=== PATIENT | male | born 1955 | race Caucasian/White ===

== ENCOUNTER 2023-04-28 08:33 | Outpatient (OUT) | payer MEDICARE, OTHER, SELFPAY ==
--- NOTE | 2023-04-28 08:49 | MR_ITS ---
The [address] [address] Patient Name: MAURA BALLARD MRN: [id number] date: 1955 Sex: M Assigned Patient Location: MRI Current Patient Location: MRI Accession/Order Number: [id number] Exam Date: 04/28/2023 09:00 Report Date: 04/28/2023 12:49 At the request of: NAYELY HERNANDES Procedure: MR foot RT wo con EXAM: MR foot RT wo con REASON FOR EXAM: Plantar Fasciitis M72.2. TECHNIQUE: Multiplanar, multisequence imaging of the right foot was performed without contrast COMPARISON: No recent relevant imaging. FINDINGS: There is fusiform thickening and intermediate signal involving the Achilles tendon with linear fluid: Signal along the deep fibers laterally suspicious for low-grade partial tearing. Enthesophytes are noted. No evidence of complete tear. Thickening and intermediate signal involving the medial cord of the plantar fascia. There is complete tear of the medial cord with surrounding edema. The lateral cord appears intact. Inferior calcaneal spur is noted. Laterally, thickening and intermediate signal of the peroneal tendons is consistent with tendinosis. There is short segment high-grade partial tear of the inframalleolar peroneus brevis tendon (series 4, images 9-12). A complete rupture not confidently identified. Mild tenosynovitis. The superficial peroneal retinaculum is intact. Thickening and intermediate signal involving the anterior talofibular and calcaneofibular ligaments suggesting prior ligamentous injury. No definite acute lateral ligamentous injury. Medially, the medial flexor tendons demonstrate normal thickness and signal without tendinosis or tear. The deep deltoid ligament is dysmorphic suggesting deep deltoid ligament sprain, remote. The spring ligament is intact. Lisfranc ligament is intact. Anteriorly, the anterior extensor tendons demonstrate normal thickness and signal without tendinosis or tear. The bone marrow signal is without acute fracture. Moderate to severe tibiotalar and subtalar osteoarthritis. The sinus tarsi is nonedematous. Moderate midfoot osteoarthritis. The plantar musculature demonstrates normal bulk and signal. MR/MR foot RT wo con IMPRESSION: 1. Chronic plantar fasciopathy with complete tear of the medial cord of the plantar fascia from its calcaneal attachment. 2. High-grade partial tearing of the inframalleolar peroneus brevis tendon. A complete rupture not identified. 3. Achilles tendinosis with low-grade partial tearing. 4. Sequela of medial lateral ligamentous injury. No definite acute ligamentous injury. 5. 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
== END 2023-04-28 08:34 | disposition home or self-care (01) ==
LOC: MRI 08:38
PROVIDERS: PCP Internal Medicine
DX: S96.819A Strain of other specified muscles and tendons at ankle and foot level, unspecified foot, initial encounter (principal)
CPT/HCPCS: 73718

== ENCOUNTER 2023-05-14 12:00 | Outpatient (OUT) | payer MEDICARE, OTHER, SELFPAY ==
--- NOTE | 2023-05-14 | XR_ITS ---
The [address] [address] Patient Name: MAUAR GUADALUPE MRN: [id number] date: 1955 Sex: M Assigned Patient Location: LAB Current Patient Location: LAB Accession/Order Number: [id number] Exam Date: 05/14/2023 12:20 Report Date: 05/14/2023 21:38 At the request of: NAYELY HERNANDES Procedure: XR chest 2V EXAM: XR chest 2V HISTORY: pre surgical clearance COMPARISON: None. TECHNIQUE: PA and lateral views of the chest FINDINGS: There is no focal airspace consolidation. The lungs are mildly hyperinflated. There are bibasilar reticular opacities, suggestive of scarring or mild atelectasis. The cardiomediastinal silhouette is not enlarged. No evidence of pleural effusion or pneumothorax are identified. No acute osseous abnormality. XR/XR chest 2V IMPRESSION: No acute cardiopulmonary process. Lungs appear hyperinflated suggestive of obstructive lung disease with mild bibasilar chronic changes Electronically authenticated by: LYNNE JIMENEZ Date: 05/14/2023 21:38
[2023-05-14 12:23] LABS: Basophils Absolute Auto 0.1 10^3/uL (0.0-0.1); Basophils Percent Auto 0.9 % (0.2-2.0); Eosinophils Absolute Auto 0.2 10^3/uL (0.0-0.7); Hematocrit 41.2 % (42.0-54.0); Hemoglobin 13.5 g/dL (14.0-18.0); Immature Granulocytes Abs Auto 0.04 10^3/uL (0.00-0.03); Immature Granulocytes Pct Auto 0.5 % (0.0-0.5); Lymphocytes Absolute Auto 2.1 10^3/uL (1.2-3.8); Lymphocytes Percent Auto 24.1 % (20.5-60.0); Mean Corpuscular HGB Conc 32.8 g/dL (29.9-35.2); Mean Corpuscular Hemoglobin 29.5 pg (25.9-34.0); Mean Corpuscular Volume 90.2 fL (80.0-94.0); Mean Platelet Volume 11.2 fL (9.5-13.5); Monocytes Absolute Auto 0.8 10^3/uL (0.3-0.8); Monocytes Percent Auto 8.6 % (1.7-12.0); Neutrophils Absolute Auto 5.6 10^3/uL (1.4-6.5); Neutrophils Percent Auto 63.9 % (43.0-75.0); Platelet Count 174 10^3/uL (150-450); Red Blood Count 4.57 10^6/uL (4.70-6.10); Red Cell Distribution Width 13.2 % (11.0-15.0); White Blood Count 8.7 10^3/uL (4.0-11.0)
[2023-05-14 13:13] LABS: Anion Gap 10.8; BUN Creatinine Ratio 17.8; Calcium 8.5 mg/dL (8.5-10.1); Carbon Dioxide 31.8 mmol/L (21.0-32.0); Chloride 104 mmol/L (98-107); Estimated GFR (African America >60 (>=60); Estimated GFR (Non-African Ame >60 (>=60); Glucose 118 mg/dL (74-106); Potassium 3.6 mmol/L (3.5-5.1); Sodium 143 mmol/L (136-145)
== END 2023-05-14 12:01 | disposition home or self-care (01) ==
LOC: LAB 12:08
PROVIDERS: PCP Internal Medicine
DX: Z01.812 Encounter for preprocedural laboratory examination (principal); Z01.810 Encounter for preprocedural cardiovascular examination
CPT/HCPCS: 36415; 71046; 80048; 85025

== ENCOUNTER 2023-07-11 08:02 | Outpatient (OUT) | payer MEDICARE, OTHER, SELFPAY ==
--- NOTE | 2023-07-11 08:08 | CT_ITS ---
[address] [address] Patient Name: MAURA GUADALUPE MRN: [id number] date: 1955 Sex: M Assigned Patient Location: CT Current Patient Location: Accession/Order Number: [id number] Exam Date: 07/11/2023 08:16 Report Date: 07/12/2023 06:28 At the request of: SILVESTRE MIRANDA Procedure: CT lung screening low-dose EXAMINATION: CT lung screening low-dose HISTORY: Cigarette Nicotine Dependence F17.210 COMPARISON: No relevant comparison available. TECHNIQUE: Axial, Coronal, and Sagittal images were created without the administration of IV contrast material. Dose reduction techniques were achieved by using automated exposure control and/or adjustment of mA and/or kV according to patient size and/or use of iterative reconstruction technique. FINDINGS: LUNGS: A few tiny granulomas. No significant chronic interstitial changes, suspicious nodules or infiltrates. PLEURA: No mass, effusion, or pneumothorax. VASCULATURE: No abnormality. DIMAS: No mass or pathologic adenopathy. MEDIASTINUM: No mass or pathologic adenopathy. CARDIAC: Marked atherosclerotic coronary artery disease. No cardiac enlargement or pericardial effusion. AORTA: No aneurysm or dissection. CHEST WALL: No mass or axillary adenopathy BONES: No bone lesion or fracture. LIMITED ABDOMEN: No suspicious findings. Limited images of the upper abdomen. OTHER: Negative. CT/CT lung screening low-dose IMPRESSION: 1. Lung-RADS Category 1 Negative. No nodules and definitely benign nodules. Continue annual screening with LDCT in 12 months. 2. Marked atherosclerotic coronary artery disease. Electronically authenticated by: BONITA MEYERS Date: 07/12/2023 06:28
--- NOTE | 2023-07-11 08:08 | US_ITS ---
The [address] [address] Patient Name: MAURA GUADALUPE MRN: [id number] date: 1955 Sex: M Assigned Patient Location: CT Current Patient Location: CT Accession/Order Number: [id number] Exam Date: 07/11/2023 08:20 Report Date: 07/11/2023 09:21 At the request of: SILVESTRE MIRANDA Procedure: US abdominal aortic aneurysm EXAM: US abdominal aortic aneurysm HISTORY: . Abdominal Aortic Aneurysm Z13.6 . COMPARISON: None. TECHNIQUE: Grayscale and color imaging was performed FINDINGS: Scanning of the abdominal aorta demonstrates the proximal aorta to measure 2.7 x 2.9 cm, mid aorta 1.8 x 2.2 cm, and the distal aorta 1.8 x 1.9 cm. Color-flow is noted throughout the aorta. Atherosclerotic changes of the abdominal aorta are noted. US/US abdominal aortic aneurysm Impression: 1. The proximal aorta is prominent measuring 8.7 x 2.9 cm. 2. The mid and distal aorta demonstrate no aneurysmal dilatation. 3. Atherosclerotic changes of the abdominal aorta. Electronically authenticated by: VIRGIL HERNANDES Date: 07/11/2023 09:21
== END 2023-07-11 08:03 | disposition home or self-care (01) ==
LOC: CT 08:02
PROVIDERS: PCP Internal Medicine; Visit Provider Internal Medicine
DX: F17.210 Nicotine dependence, cigarettes, uncomplicated (principal); Z13.6 Encounter for screening for cardiovascular disorders
CPT/HCPCS: 71271; 76775

== ENCOUNTER 2023-12-08 06:57 | Emergency (ER) | payer MEDICARE, OTHER, SELFPAY ==
[2023-12-08] VITALS (9 sets, daily range): BP systolic 118–141; BP diastolic 66–76; PULSE 52–62; TEMP 36.6; O2SAT 93–98; BMI 31.9
--- NOTE | 2023-12-08 07:09 | CT_ITS ---
[address] [address] Patient Name: MAURA GUADALUPE MRN: [id number] date: 1955 Sex: M Assigned Patient Location: ER Current Patient Location: ER Accession/Order Number: [id number] Exam Date: 12/08/2023 08:42 Report Date: 12/08/2023 09:19 At the request of: RAFAELA MARKER Procedure: CT abdomen pelvis w con EXAMINATION: CT abdomen pelvis w con HISTORY: abd pain COMPARISON: No relevant comparison available. TECHNIQUE: Axial, Coronal, and Sagittal images were obtained without and/or with IV contrast as indicated by examination type. Dose reduction techniques were achieved by using automated exposure control and/or adjustment of mA and/or kV according to patient size and/or use of iterative reconstruction technique. FINDINGS: LUNG BASES: No visible pulmonary or pleural disease. LIVER: No enlargement, atrophy, suspicious density, or significant focal lesion. BILIARY: No dilatation or calcification. PANCREAS: No lesion, fluid collection, or abnormal duct dilatation. SPLEEN: No enlargement or focal lesion. ADRENALS: No mass or enlargement. KIDNEYS: No mass, obstruction, or calcification. BOWEL/MESENTERY: Multiple small diverticula involving the sigmoid colon. Prominent circumferential wall thickening of the descending and sigmoid colon. No appreciable mass. No bowel obstruction. Unremarkable stomach and small bowel. Normal appendix. AORTA/VASCULAR: No aneurysm or dissection. RETROPERITONEUM: No mass or adenopathy. LYMPH NODES: No adenopathy. URINARY BLADDER: No visible focal wall thickening, lesion, or calculus. PELVIC ORGANS: No visible mass. Pelvic organs appropriate for patient age. ABDOMINAL WALL: No mass or hernia. BONES: No bony lesion or fracture. OTHER: Negative. CT/CT abdomen pelvis w con IMPRESSION: 1. Abnormal circumferential wall thickening of proximal descending through distal sigmoid colon most suggestive of colitis. No bowel obstruction. 2. Moderate diverticulosis of sigmoid colon; no convincing diverticulitis. Electronically authenticated by: BONITA MEYERS Date: 12/08/2023 09:19
--- NOTE | 2023-12-08 07:10 | ED_ITS ---
HPI - Abdominal Pain General Chief Complaint: Abdominal Pain Stated Complaint: abdominal pain Time Seen by Provider: 12/08/23 07:08 Source: patient Mode of arrival: ambulance History of Present Illness HPI narrative: This 68-year-old male who states he has a history of C. difficile a year ago presents for evaluation of suprapubic abdominal pain. The patient states he woke up around 4 AM and went to the bathroom. He then started having suprapubic abdominal pain with nausea. He states he went to the bathroom several times and his pain has subsided but is still present is coming and going. He denies any hematuria or dysuria. He states his stool is becomes soft but denies any black tarry stool. He denies any chest pain or shortness of breath. He denies any dizziness or syncope. He has never had any abdominal surgery. He does admit to daily drinking. According to the records he is also on Suboxone. The patient states upon arrival that he just wants to sleep.... Related Data Home Medications ?Medication ?Instructions ?Recorded ?Confirmed atorvastatin 40 mg tablet mg 12/08/23 buprenorphine 8 mg-naloxone 2 mg film 12/08/23 sublingual film hydrochlorothiazide 12.5 mg tablet mg 12/08/23 ibuprofen 800 mg tablet mg 12/08/23 lisinopril 10 mg tablet mg 12/08/23 metoprolol succinate 50 mg mg PO 12/08/23 tablet,extended release 24 hr omeprazole 20 mg capsule,delayed mg 12/08/23 release Allergies Allergy/AdvReac Type Severity Reaction Status Date / Time No Known Drug Allergies Allergy Verified 12/08/23 07:04 Review of Systems ROS Status of ROS 10 or more systems reviewed and unremark able except as noted in history and below Exam Narrative Exam Narrative: Nurses note and vital signs reviewed and patient is not hypoxic. General: The patient appears well and in no apparent distress. Patient is resting comfortably on cart. Skin: Warm, dry, no pallor noted. There is no rash noted. Head: Normocephalic, atraumatic Eye: Normal conjunctiva, no drainage, EOMI. PERRL. No scleral icterus Ears, Nose, Mouth, and Throat: oral mucosa is moist. Patient is edentulous Cardiovascular: Regular Rate and [id number], no murmurs, rubs or gallops Respiratory: Patient is in no distress, no accessory muscle use, lungs are clear to auscultation, no wheezing, rales or rhonchi Back: non-tender, no CVA tenderness bilaterally to percussion. GI: Normal bowel sounds, Abdomen is softly distended and diffusely tender, he localizes to the right upper quadrant and epigastrium Musculoskeletal: The patient has no evidence of calf tenderness, no pitting edema, symmetrical pulses noted bilaterally Neurological: A&O x4, normal speech, Appears sleepy, has no focal deficits Psychiatric: Cooperative Constitutional Vital Signs, click to edit/add: Last Vital Signs Temp 98 F 12/08/23 07:00 Pulse 55 L 12/08/23 07:00 Resp 18 12/08/23 07:00 BP 128/72 12/08/23 07:00 Pulse Ox 96 12/08/23 07:00 O2 Del Method Room Air 12/08/23 07:00 Course Vital Signs Vital signs: Vital Signs Temperature 98 F 12/08/23 07:00 Pulse Rate 55 L 12/08/23 07:00 Respiratory Rate 18 12/08/23 07:00 Blood Pressure 128/72 12/08/23 07:00 Pulse Oximetry 96 12/08/23 07:00 Oxygen Delivery Method Room Air 12/08/23 07:00 Temperature 98 F 12/08/23 07:00 Pulse Rate 55 L 12/08/23 07:00 Respiratory Rate 18 12/08/23 07:00 Blood Pressure 128/72 12/08/23 07:00 Pulse Oximetry 96 12/08/23 07:00 Oxygen Delivery Method Room Air 12/08/23 07:00 Discharge Plan Discharge Chief Complaint: Abdominal Pain Patient Disposition: Still a Patient Prescriptions / Home Meds: No Action atorvastatin 40 mg tablet ibuprofen 800 mg tablet metoprolol succinate 50 mg tablet extended release 24 hr PO lisinopril 10 mg tablet omeprazole 20 mg capsule,delayed release(DR/EC) hydrochlorothiazide 12.5 mg tablet buprenorphine-naloxone 8-2 mg film Print Language: Gabonese Referrals: SILVESTRE MIRANDA [Primary Care Provider] - 1 week
[2023-12-08] MEDS: ONDANSETRON PF 4 MG/2 ML VIAL IV (07:14)
[2023-12-08] MEDS: 0.9 % SODIUM CHLORIDE 1,000 ML 1000 ML IV (07:14)
[2023-12-08 07:15] LABS: Basophils Absolute Auto 0.1 10^3/uL (0.0-0.1); Basophils Percent Auto 0.4 % (0.2-2.0); Eosinophils Absolute Auto 0.2 10^3/uL (0.0-0.7); Eosinophils Percent Auto 1.3 % (0.9-7.0); Hemoglobin 13.6 g/dL (14.0-18.0); Immature Granulocytes Abs Auto 0.03 10^3/uL (0.00-0.03); Immature Granulocytes Pct Auto 0.2 % (0.0-0.5); Lymphocytes Absolute Auto 1.7 10^3/uL (1.2-3.8); Lymphocytes Percent Auto 12.2 % (20.5-60.0); Mean Corpuscular HGB Conc 32.4 g/dL (29.9-35.2); Mean Corpuscular Hemoglobin 29.4 pg (25.9-34.0); Mean Corpuscular Volume 90.9 fL (80.0-94.0); Mean Platelet Volume 11.7 fL (9.5-13.5); Monocytes Absolute Auto 0.6 10^3/uL (0.3-0.8); Monocytes Percent Auto 4.2 % (1.7-12.0); Neutrophils Absolute Auto 11.2 10^3/uL (1.4-6.5); Neutrophils Percent Auto 81.7 % (43.0-75.0); Platelet Count 183 10^3/uL (150-450); Red Blood Count 4.62 10^6/uL (4.70-6.10); Red Cell Distribution Width 13.3 % (11.0-15.0); White Blood Count 13.7 10^3/uL (4.0-11.0)
[2023-12-08 07:34] LABS: Alanine Aminotransferase 28 U/L (16-63); Albumin Globulin Ratio 0.9; Albumin Level 3.3 g/dL (3.4-5.0); Alkaline Phosphatase 87 U/L (46-116); Anion Gap 10.8; Aspartate Amino Transferase 18 U/L (15-37); BUN Creatinine Ratio 10.8; Bilirubin Total 0.8 mg/dL (0.2-1.0); Calcium 9.1 mg/dL (8.5-10.1); Carbon Dioxide 31.7 mmol/L (21.0-32.0); Chloride 102 mmol/L (98-107); Estimated GFR (African America >60 (>=60); Estimated GFR (Non-African Ame >60 (>=60); Globulin 3.5 g/dL; Glucose 158 mg/dL (74-106); Potassium 3.5 mmol/L (3.5-5.1); Sodium 141 mmol/L (136-145); Total Protein 6.8 g/dL (6.4-8.2)
[2023-12-08 07:35] LABS: Ethanol <3 mg/dL
[2023-12-08 08:50] LABS: Adenovirus F 40/41 NOT DETECTED (NOT DETECTE); Astrovirus NOT DETECTED (NOT DETECTE); Campylobacter NOT DETECTED (NOT DETECTE); Cryptosporidium NOT DETECTED (NOT DETECTE); Cyclospora cayetanensis NOT DETECTED (NOT DETECTE); Entamoeba histolytica NOT DETECTED (NOT DETECTE); Enteroaggregative E.coli NOT DETECTED (NOT DETECTE); Enteropathogenic E.coli NOT DETECTED (NOT DETECTE); Enterotoxigenic E. coli NOT DETECTED (NOT DETECTE); Giardia lamblia NOT DETECTED (NOT DETECTE); Norovirus GI/GII NOT DETECTED (NOT DETECTE); Plesiomonas shigelloides NOT DETECTED (NOT DETECTE); Rotavirus A NOT DETECTED (NOT DETECTE); Salmonella NOT DETECTED (NOT DETECTE); Sapovirus NOT DETECTED (NOT DETECTE); Shiga-like toxin-producing E.C NOT DETECTED (NOT DETECTE); Shigella/Enteroinvasive E.coli NOT DETECTED (NOT DETECTE); Vibrio NOT DETECTED (NOT DETECTE); Vibrio cholerae NOT DETECTED (NOT DETECTE); Yersinia enterocolitica NOT DETECTED (NOT DETECTE)
[2023-12-08 08:58] LABS: Bilirubin Urine SMALL (NEGATIVE); Blood Urine NEGATIVE (NEGATIVE); Clarity Urine CLEAR (CLEAR); Color Urine DK. YELLOW (YELLOW); Glucose Urine UA NEGATIVE (NEGATIVE); Ketones Urine TRACE mg/dL (NEGATIVE); Leukocyte Esterase Urine NEGATIVE (NEGATIVE); Nitrite Urine NEGATIVE (NEGATIVE); Protein Urine NEGATIVE (NEG/TRACE); Urobilinogen Urine >=8.0 EU/dL (0.2-1.0); pH Urine 7.5 (5.0-9.0)
[2023-12-08 09:21] LABS: Bacteria Urine NONE SEEN #/HPF (NONE SEEN); Cast Seen? SEEN #/LPF (NONE SEEN); Crystals Seen? None Seen #/HPF (None Seen); Hyaline Casts Urine FEW; Mucus Urine NONE SEEN (NONE SEEN); RBC Urine 0-2 #/HPF (0-2); Squamous Epithelial Cell Urine NONE SEEN #/LPF (NONE/RARE); WBC Urine 0-2 #/HPF (NONE SEEN)
[2023-12-08] MEDS: METRONIDAZOLE 250 MG TABLET 500 MG PO (09:44)
[2023-12-08] MEDS: CIPROFLOXACIN HCL 500 MG TABLET PO (09:45)
== END 2023-12-08 09:53 | disposition home or self-care (01) ==
PROVIDERS: Emergency Medicine; Emergency Provider Emergency Medicine; PCP Internal Medicine
DX: A09 Infectious gastroenteritis and colitis, unspecified (principal); Z79.899 Other long term (current) drug therapy
CPT/HCPCS: 36415; 74177; 80053; 80320; 81001; 83690; 85025; 87507; 96374; 99284; Q9967

== ENCOUNTER 2024-05-22 16:04 | Outpatient (OUT) | payer MEDICARE, OTHER, SELFPAY ==
[2024-05-23 04:08] LABS: C. Difficile PCR NEGATIVE (NEGATIVE)
== END 2024-05-22 16:05 | disposition home or self-care (01) ==
PROVIDERS: PCP Internal Medicine; Visit Provider Physician Assistant
DX: R19.7 Diarrhea, unspecified (principal); Z86.19 Personal history of other infectious and parasitic diseases
CPT/HCPCS: 87493

== ENCOUNTER 2024-05-24 13:11 | Outpatient (OUT) | payer MEDICARE, OTHER, SELFPAY | END 2024-05-24 13:12 | disposition home or self-care (01) | LOC: LAB 13:11 | PROVIDERS: PCP Internal Medicine; Visit Provider Internal Medicine | DX: R19.7 Diarrhea, unspecified (principal) | CPT/HCPCS: 87045; 87046; 87150; 87177; 87209; 87427 ==

== ENCOUNTER 2024-12-12 08:19 | Outpatient (OUT) | payer MEDICARE, OTHER, SELFPAY ==
--- NOTE | 2024-12-12 08:24 | CT_ITS ---
[address] [address] Patient Name: MAURA GUADALUPE MRN: [id number] date: 1955 Sex: M Assigned Patient Location: CT Current Patient Location: CT Accession/Order Number: [id number] Exam Date: 12/12/2024 09:40 Report Date: 12/12/2024 09:44 At the request of: SILVESTRE MIRANDA Procedure: CT lung screening low-dose CT CHEST WITHOUT CONTRAST, LOW DOSE SCREENING: CLINICAL DATA: A 69-year old current smoker, . COMPARISON: CT lung screen 07/12/2023 TECHNIQUE: Noncontrast axial CT scan images of the chest were obtained under the low dose screening CT protocol. Coronal and sagittal reconstructed images were also submitted. FINDINGS: Mediastinum : Suboptimal evaluation due to low-dose technique. Thoracic aorta appears normal in caliber. Pulmonary trunk appears nondilated. No pericardial effusion. No lymphadenopathy. The esophagus is grossly unremarkable. Lungs: No focal consolidation, pneumothorax or pleural effusion. Trachea and distal airways appear patent. Emphysema. Mild lung scarring. No suspicious noncalcified pulmonary nodule or mass. Upper abdomen: No acute findings. Bony thorax and chest wall: Soft tissues surrounding the chest wall demonstrate no acute findings. Osseous structures demonstrate degenerative change. CT/CT lung screening low-dose IMPRESSION: NO SUSPICIOUS PULMONARY NODULE. LUNG - RADS Version 1.0 Assessment: Category 1, Negative (No nodules and definitely benign nodules). Management: Continue annual lung screening with LDCT in 12 months. Impression dictated by: Karri Hurt Jr., D.O. 12/12/2024 9:44 AM Dictation Location: [place] [address] Electronically authenticated by: [id number] Y Date: 12/12/2024 09:44
== END 2024-12-12 08:20 | disposition home or self-care (01) ==
LOC: CT 08:21
PROVIDERS: PCP Internal Medicine; Visit Provider Internal Medicine
DX: F17.210 Nicotine dependence, cigarettes, uncomplicated (principal)
CPT/HCPCS: 71271

== ENCOUNTER 2025-05-30 07:00 | Outpatient (OUT) | payer MEDICARE, OTHER, SELFPAY ==
--- OUTSIDE RECORDS SUMMARY | 2025-05-30 07:03 | XMS_ITS | Encounter Summary ---
Author Organization [facility] Address [address] [place] [address] Care Team Providers Care Fire Information Officer Name Role Phone Bryan Dejesus MD Primary Care Provider [phone] Bryan Dejesus MD Unavailable [phone] Kavya Walls LPN Unavailable Encounter Details Date Type Department Care Team (Late Contact Info) Description 05/17/2023 Orders Only [facility] [place] [address] [facility] [address] [place] [address] A, Unknown Practice [address] [place], [place] [id number] Social History Tobacco Use Types Packs/Day Years Used Date Smoking Tobacco: Every Day Cigarettes Smokeless Tobacco: Never Alcohol Use Standard Drinks/Week Comments Yes 1 (1 standard drink = 0.6 oz pur e alcohol) caffeine: coffee, soda/pop Sex and Gender Information Value Date Recorded Sex Assigned at Not on file Legal Sex Male 9:34 PM EDT Gender Identity Not on file Sexual Orientation Not on file documented as of this encounter Plan of Treatment Upcoming Encounters Date Type Department Care Team (Late st Contact Info) Description 06/20/2025 9:30 AM EST Office Visit [facility] [place] [address] [facility] [address] [place] [address] Bryan Dejesus MD [address] [facility] [address] [place] [address] documented as of this encounter Procedures Procedure Name Priority Date/Time Associated Diagnosis Comments XR CHEST 2 VIEWS Routine 05/14/2023 9:54 AM EDT documented in this encounter Results * XR chest 2 views (05/14/2023 9:54 AM EDT) Anatomical Region Laterality Modality Chest Radiographic Ebonie ging us Unknown Practice A IMG XR PROCEDURES Final Resul t documented in this encounter Visit Diagnoses Not on filedocumented in this encounter Care Teams Fire Information Officer Relationship Specialty Start Date End Date Bryan Dejesus MD [address] [facility] [address] [place] [address] PCP - General Internal Medicine 02/22/23 Bryan Dejesus MD [address] [facility] [address] [place] [address] PCP - ACO Reach 09/21/24 Kavay Walls LPN [address] [facility] [address] [place] [address] 04/22/25 04/23/25 documented as of this encounter
--- OUTSIDE RECORDS SUMMARY | 2025-05-30 07:03 | XMS_ITS | Encounter Summary ---
Author Organization [facility] Address [address] [facility] [place] [address] Care Team Providers Care Urban Forester Name Role Phone Bryan Dejesus MD Primary Care Provider [phone] Bryan Dejesus MD Unavailable [phone] Walls Kavya CANDIDO Unavailable Encounter Details Date Type Department Care Team (Late Contact Info) Description 12/14/2023 Abstract [facility] [place] [address] [facility] [address] [place] [phone] Bryan Dejesus MD [address] [facility] [address] [place], [place] [id number] Social History Tobacco Use Types Packs/Day Years Used Date Smoking Tobacco: Every Day Cigarettes 1 43 Smokeless Tobacco: Never Alcohol Use Standard Drinks/Week Comments Yes 2 (1 standard drink = 0.6 oz pure alcohol) 2-4 times a month,,,caffeine intake: coffee, soda/pop Sex and Gender Information Value Date Recorded Sex Assigned at Not on file Legal Sex Male 9:34 PM EDT Gender Identity Not on file Sexual Orientation Not on file documented as of this encounter Plan of Treatment Upcoming Encounters Date Type Department Care Team (Late Contact Info) Description 06/20/2025 9:30 AM EST Office Visit [facility] [place] [facility] [address] [facility] [address] [place] [phone] Bryan Dejesus MD [address] [facility] [address] [place], [place] [phone] documented as of this encounter Visit Diagnoses Not on filedocumented in this encounter Care Teams Urban Forester Relationship Specialty Start Date End Date Bryan Dejesus MD [address] [place] [address] [place] [address] PCP - General Internal Medicine 02/22/23 Bryan Dejesus MD [address] [facility] [address] [place] [address] PCP - ACO Reach 09/21/24 Kavya Walls LPN [address] [facility] [address] [place] [address] 04/22/25 04/23/25 documented as of this encounter
--- OUTSIDE RECORDS SUMMARY | 2025-05-30 07:03 | XMS_ITS | Encounter Summary ---
Author Organization [facility] Address [address] [place] [address] Care Team Providers Care Machinist [employer] Name Role Phone Bryan Dejesus MD Primary Care Provider [phone] Bryan Dejesus MD Unavailable [phone] Kavya Walls LPN Unavailable Encounter Details Date Type Department Care Team (Late Contact Info) Description 05/11/2023 Orders Only [facility] [address] [place] [address] Minoo Guerrero [place] [address] [facility] [place] [address] [place] [address] Pre-operative clearance Social History Tobacco Use Types Packs/Day Years [...] Description 06/20/2025 9:30 AM EST Office Visit [facility] [address] [facility] [address] [place] [phone] Bryan Dejesus MD [address] [facility] [address] [place], [place] [phone] Scheduled Orders Name Type Priority Associated Diagnoses Orde r Schedule CBC auto differential Lab Routine Pre-operative clearance Expected: 05/11/2023 (Approximate), Expires: 05/11/2024 Chem 7, basic metabolic panel Lab Routine Pre-operative clearance Expected: 05/11/2023 (Approximate), Expires: 05/11/2024 documented as of this encounter Visit Diagnoses Diagnosis Pre-operative clearance Unspecified pre-operative examination documented in this encounter Care Teams Mach[employer]ist [employer] Relationship Specialty Start Date End Date Bryan Dejesus MD [address] [place] [address] [place] [address] PCP - General Internal Medicine 02/22/23 Bryan Dejesus MD [address] [facility] [address] [place] [address] PCP - ACO Reach 09/21/24 Kavya Walls LPN [address] [facility] [address] [place] [address] 04/22/25 04/23/25 documented as of this encounter
--- OUTSIDE RECORDS SUMMARY | 2025-05-30 07:03 | XMS_ITS | Encounter Summary ---
Author Organization [facility] Address [address] [place] [address] Care Team Providers Care Guide Delegate Name Role Phone Bryan Dejesus MD Primary Care Provider [phone] Bryan Dejesus MD Unavailable [phone] Kavya Walls CANDIDO Unavailable Encounter Details Date Type Department Care Team (Late Contact Info) Description 05/14/2023 Clinisync Result Encounter [facility] External Department Unsolicited Provider, Generic External Data Social History Tobacco Use Types Packs/Day Years [...] 9:30 AM EST Office Visit [facility] [place] [facility] [address] [facility] 110 [place] [address] Bryan Dejesus MD [address] [facility] 110 [place], [place] [id number] documented as of this encounter Procedures Procedure Name Priority Date/Time Associated Diagnosis Comments XR CHEST 2V 05/14/2023 9:38 PM EDT documented in this encounter Results * XR CHEST 2V (05/14/2023 9:38 PM EDT) Anatomical Region Laterality Modality Other 05/14/2023 9:38 PM EDT Narrative 05/14/2023 9:38 PM EDT [address] [address] XRay Report Signed Patient: FRANCISCO GUADALUPE MR#: [id number] : 1955 Acct:[id number] Age/Sex: 67 / M ADM Date: 05/14/23 Loc: LAB Attending Dr: NAYELY HERNANDES Ordering Physician: NAYELY HERNANDES Date of Service: 05/14/23 Procedure(s): XR chest 2V Accession Number(s): [id number] cc: BRYAN DEJESUS ; NAYELY HERNANDES [address] [address] Patient Name: FRANCISCO GUADALUPE MRN: [id number] date: 1955 Sex: M Assigned Patient Location: LAB Current Patient Location: LAB Accession/Order Number: [id number] Exam Date: 05/14/2023 12:20 Report Date: 05/14/2023 21:38 At the request of: NAYELY HERNANDES Procedure: XR chest 2V EXAM: XR chest 2V HISTORY: pre surgical clearance COMPARISON: None. TECHNIQUE: PA and lateral views of the chest FINDINGS: There is no focal airspace consolidation. The lungs are mildly hyperinflated. There are bibasilar reticular opacities, suggestive of scarring or mild atelectasis. The cardiomediastinal silhouette is not enlarged. No evidence of pleural effusion or pneumothorax are identified. No acute osseous abnormality. XR/XR chest 2V IMPRESSION: No acute cardiopulmonary process. Lungs appear hyperinflated suggestive of obstructive lung disease with mild bibasilar chronic changes Electronically authenticated by: LYNNE JIMENEZ Date: 05/14/2023 21:38 Dictated By: LYNNE JIMENEZ M.D. Signed By: 05/14/232140 DD/ 37 TD/TT: Executive Office Manager: Procedure Note Radiology, Radiologist, MD - 05/14/[address] [address] XRay Report Signed Patient: FRANCISCO GUADALUPE WMR#: [id number] : 8Acct:[id number] Age/Sex: 67 / MADM Date: 05/14/23 Loc: LAB Attending Dr: NAYELY HERNANDES Ordering Physician: NAYELY HERNANDES Date of Service: 05/14/23 Procedure(s): XR chest 2V Accession Number(s): [id number] cc: BRYAN DEJESUS ; NAYELY HERNANDES The [address] [address] Patient Name: FRANCISCO GUADALUPE MRN: [id number] date: 1955 Sex: M Assigned Patient Location: LAB Current Patient Location: LAB Accession/Order Number: [id number] Exam Date: 05/14/2023 12:20 Report Date: 05/14/2023 21:38 At the request of: NAYELY HERNANDES Procedure: XR chest 2V EXAM: XR chest 2V HISTORY: pre surgical clearance COMPARISON: None. TECHNIQUE: PA and lateral views of the chest FINDINGS: There is no focal airspace consolidation. The lungs are mildlyhyperinflated. There are bibasilar reticular opacities, suggestive of scarring or mild atelectasis. The cardiomediastinal silhouette is not enlarged. No evidence of pleural effusion or pneumothorax are identified. No acute osseous abnormality. XR/XR chest 2V IMPRESSION: No acute cardiopulmonary process. Lungs appear hyperinflated suggestive of obstructive lung disease withmild bibasilar chronic changes Electronically authenticated by: LYNNE JIMENEZ Date: 05/14/2023 21:38 Dictated By: LYNNE JIMENEZ M.D. Signed By:05/14/232140 DD/ 37 TD/TT: Executive Office Manager: us Generic External Data Provider [facility] Final Result documented in this encounter Visit Diagnoses Not on filedocumented in this encounter Care Teams Guide Delegate Relationship Specialty Start Date End Date Bryan Dejesus MD [address] [facility] [address] [place] [address] PCP - General Internal Medicine 02/22/23 Bryan Dejesus MD [address] [place] [address] [place] [address] PCP - ACO Reach 09/21/24 Kavya Walls LPN [address] [place] [address] [place] [address] 04/22/25 04/23/25 documented as of this encounter
--- OUTSIDE RECORDS SUMMARY | 2025-05-30 07:03 | XMS_ITS | Clinical Summary ---
Author Organization [email or web address] [employer] Address [facility] [id number] [address] [place] [address] Care Team Providers Care Mechanical Door Repairer Name Role Phone Bryan Dejesus MD Primary Care Provider [phone] Allergies No known active allergies Medications atorvastatin (LIPITOR) 40 mg tablet Take 1 tablet (40 mg total) by mouth in the morning. Active metoprolol succinate XL (TOPROL XL) 25 mg 24 hr tablet Take 1 tablet (25 mg total) by mouth in the morning. Active omeprazole (PriLOSEC) 20 mg capsule Take 1 capsule (20 mg total) by mouth in the morning. Active aspirin 81 mg chewable tablet Chew 1 tablet (81 mg total) and swallow in the morning. Active lisinopriL (PRINIVIL,ZESTR IL) 10 mg tablet Take 1 tablet (10 mg total) by mouth in the morning. Active ezetimibe (ZETIA) 10 mg tablet Take 1 tablet (10 mg total) by mouth in the morning. Active Encounters Date Type Department Care Team Description 04/19/2025 9:09 PM EDT - 04/20/2025 12:13 AM EDT Emergency [facility] - Emergency [address] [place] [address] Edd Mendoza MD Chest pain, unspecified type (Primary Dx); Lung nodule Discharge Disposition: Home 04/19/2025 Travel from Last 3 Months Social History Tobacco Use Types Packs/Day Years Used Date Smoking Tobacco: Every Day Cigarettes Tobacco Cessation:Ready to Q uit: Not Asked; Counseling Given: Not Answered Alcohol Use Standard Drinks/Week Comments Yes 0 (1 standard drink = 0.6 oz pur e alcohol) Childcare Answer Date Recorded Childcare Unknown 01/24/2019 Employment Answer Date Recorded Employment Unknown 01/24/2019 Hunger Screening Answer Date Recorded Within the past 12 months we worried whether our food would run out before we got money to buy more. Never True 04/19/2025 Within the past 12 months th e food we bought just didn't last and we didn't have money to get more. Never True 04/19/2025 Sex and Gender Information Value Date Recorded Sex Assigned at Not on file Legal Sex Male 12:04 PM EDT Gender Identity Not on file Sexual Orientation Not on file Last Filed Vital Signs Vital Sign Reading Time Taken Comments Blood Pressure 136/72 04/20/2025 12:05 AM EDT Pulse 68 04/20/2025 12:05 AM EDT Temperature 36.9 C (98.5 F) 04/19/2025 8:46 PM EDT Respiratory Rate 18 04/20/2025 12:05 AM EDT Oxygen Saturation 94% 04/20/2025 12:10 AM EDT Inhaled Oxygen Concentration - - Weight 99.8 kg (220 lb) 04/19/2025 8:46 PM EDT Height 175.3 cm (5' 9 ) 04/19/2025 8:46 PM EDT Body Mass Index 32.49 04/19/2025 8:46 PM EDT Plan of Treatment Health Maintenance Due Date Last Done Comments Tobacco Counseling 1955 Depression Screening 1969 Tobacco Screening 1969 Adult BMI Follow Up Plan 11/16/1975 DTaP,Tdap and Td Vaccines (1 - Tdap) 1976 Zoster (Shingles) Vaccine (2 of 2) 07/14/2020 05/19/2020 Abdominal Aortic Aneurysm (A AA) Screen 2022 Fall Risk Screening 2022 COVID-19 Vaccine (6 - 2023-2 5 season) 2025 07/08/2024, 11/28/2021, 05/23/2021, Additional history exists Influenza Vaccine 04/15/2025 07/08/2024, , 06/24/2022, Additional history exists Adult BMI Screening 04/19/2026 04/19/2025 Medical Devices Not on file Procedures Procedure Name Priority Date/Time Associated Diagnosis Comments XR CHEST 1 VW STAT 04/19/2025 11:17 PM EDT TROP I, HIGH SENSITIVITY 1 HOUR STAT 04/19/2025 10:42 PM EDT EXTRA TUBES BLUE TOP Routine 04/19/2025 9:48 PM EDT EXTRA TUBES Routine 04/19/2025 9:48 PM EDT TROPONIN I, HIGH SENSITIVITY 0 HOUR STAT 04/19/2025 9:39 PM EDT TROPONIN I, HIGH SENSITIVITY 0 HOUR STAT 04/19/2025 9:39 PM EDT ETHANOL STAT 04/19/2025 9:39 PM EDT COMPREHENSIVE METABOLIC PANEL STAT 04/19/2025 9:39 PM EDT CBC WITH AUTO DIFFERENTIAL STAT 04/19/2025 9:39 PM EDT ECG 12-LEAD STAT 04/19/2025 8:41 PM EDT from Last 3 Months Results * X-ray chest 1 view (04/19/2025 11:17 PM EDT) Anatomical Region Laterality Modality Body, Chest N/A Computed Radiogr aphy 04/19/2025 11:5 1 PM EDT Narrative 04/19/2025 11:55 PM EDT History: Chest pain Technique: A portable single frontal view of the chest was obtained. Comparison: 02/08/2012 Findings: There is a 1.2 cm oval-shaped nodule in the right lung base that is new since previous examination. The remaining lung gunter are clear for an active process. There is no evidence for active cardiovascular disease. Impression: 1.2 cm oval-shaped nodule in the right lung base, new since the previous examination dated 02/08/2012. CT thorax is recommended for further evaluation. Otherwise normal chest. Finalized by Pablo Nair MD on 04/19/2025 11:55 PM Procedure Note Pablo Nair MD - 04/19/2025 History: Chest pain Technique: A portable single frontal view of the chest was obtained. Comparison: 02/08/2012 Findings: There is a 1.2 cm oval-shaped nodule in the right lung base thatis new since previous examination. The remaining lung gunter are clear kyle active process. There is no evidence for active cardiovasculardisease. Impression: 1.2 cm oval-shaped nodule in the right lung base, new sincethe previous examination dated 02/08/2012. CT thorax is recommended forfurther evaluation. Otherwise normal chest. Finalized by Pablo Nair MD on 04/19/2025 11:55 PM us Edd Mendoza MD IMG DIAGNOSTIC IMAGING ORDERA BLES Final Result * Troponin I, High Sensitivity 1 Hour (04/19/2025 10:42 PM EDT) TROPONIN I, HIGH SENSITIVITY 9 <21 ng/L 04/19/2025 11:11 PM EDT [facility] Blood Venous blood / Unknown Venipuncture / Unknown 04/19/2025 10:42 PM EDT 04/19/2025 10:44 PM EDT us Edd Mendoza MD LAB BLOOD ORDERABLES Final Re sult [address] [address], [place] * Light Blue Top (04/19/2025 9:48 PM EDT) Extra Tube Auto Resulted 04/19/2025 11:01 PM EDT [facility] Blood Venous blood / Unknown 04/19/2025 9:48 PM EDT 04/19/2025 9:48 PM EDT us Edd Mendoza MD LAB BLOOD ORDERABLES Final Re sult [facility] [address] [place] [address], [place] * Troponin I, High Sensitivity 0 Hour (04/19/2025 9:39 PM EDT) [facility] TROPONIN I, HIGH SENSITIVITY 9 <21 ng/L 04/19/2025 10:54 PM EDT [facility] Blood Venous blood / Unknown Venipuncture / Unknown 04/19/2025 9:39 PM EDT 04/19/2025 9:47 PM EDT us Edd Mendoza MD LAB BLOOD ORDERABLES Final Re sult [address] [place] [address], [place] * (ABNORMAL) CBC auto differential (04/19/2025 9:39 PM EDT) [facility] WBC 6.8 4 - 11 x10E9/L 04/19/2025 9:55 PM EDT [facility] RBC Count 4.40 4.1 - 5.7 X10E12/L 04/19/2025 9:55 PM EDT [facility] Hemoglobin 13.2 13 - 17 g/dL 04/19/2025 9:55 PM EDT [facility] Hematocrit 38.4(L) 39 - 50 % 04/19/2025 9:55 PM EDT [facility] MCV 87 80 - 100 fL 04/19/2025 9:55 PM EDT [facility] MCH 30.0 27 - 34 pg 04/19/2025 9:55 PM EDT [facility] MCHC 34.5 32 - 36 g/dL 04/19/2025 9:55 PM EDT [facility] RDW 14.0 11.5 - 15 % 04/19/2025 9:55 PM EDT [facility] Platelet Count 175 150 - 450 X10E9/L 04/19/2025 9:55 PM EDT [facility] MPV 9.4 7 - 12 fL 04/19/2025 9:55 PM EDT [facility] Neutrophils % 70.7 % 04/19/2025 9:55 PM EDT [facility] Lymphocytes % 19.6 % 04/19/2025 9:55 PM EDT [facility] Monocytes % 7.7 % 04/19/2025 9:55 PM EDT [facility] Eosinophils % 1.4 % 04/19/2025 9:55 PM EDT [facility] Basophils % 0.6 % 04/19/2025 9:55 PM EDT [facility] Neutrophils Absolute (A) 4.8 1.5 - 6.6 10*3/uL 04/19/2025 9:55 PM EDT [facility] Lymphocytes Absolute 1.3 1.0 - 3.5 10*3/uL 04/19/2025 9:55 PM EDT [facility] Monocytes Absolute 0.5 0.0 - 0.9 10*3/uL 04/19/2025 9:55 PM EDT [facility] Eosinophils Absolute 0.1 0.0 - 0.4 10*3/uL 04/19/2025 9:55 PM EDT [facility] Basophils Absolute 0.0 0.0 - 0.2 10*3/uL 04/19/2025 9:55 PM EDT [facility] Differential Type AUTOMATED DIFFERENTIAL 04/19/2025 9:55 PM EDT [facility] Blood Venous blood / Unknown Venipuncture / Unknown 04/19/2025 9:39 PM EDT 04/19/2025 9:47 PM EDT us Edd Mendoza MD LAB BLOOD ORDERABLES Final Re sult [facility] [address] [place] [address], [place] * Ethanol (04/19/2025 9:39 PM EDT) ETHANOL 0.024 <=0.080 g/dL 04/19/2025 10:49 PM EDT [facility] Comment: This report is intended for use in clinical monitoring or management of patients. Blood Venous blood / Unknown Venipuncture / Unknown 04/19/2025 9:39 PM EDT 04/19/2025 9:47 PM EDT us Edd Mendoza MD LAB BLOOD ORDERABLES Final Re sult [facility] [address] [place] [address], * (ABNORMAL) Comprehensive metabolic panel (04/19/2025 9:39 PM EDT) SODIUM 137 134 - 146 mmol/L 04/19/2025 10:45 PM EDT [facility] POTASSIUM 3.2(L) 3.5 - 5.0 mmol/L 04/19/2025 10:45 PM EDT [facility] CHLORIDE 101 98 - 109 mmol/L 04/19/2025 10:45 PM EDT [facility] CARBON DIOXIDE 27 22 - 32 mmol/L 04/19/2025 10:45 PM EDT [facility] ANION GAP 9 5 - 15 mmol/L 04/19/2025 10:45 PM EDT [facility] BLOOD UREA NITROGEN 17 5 - 27 mg/dL 04/19/2025 10:45 PM EDT [facility] CREATININE 0.84 0.70 - 1.20 mg/dL 04/19/2025 10:45 PM EDT [facility] Comment:METHOD TRACEABLE TO IDMS STANDARD GLUCOSE 104(H) 65 - 99 mg/dL 04/19/2025 10:45 PM EDT [facility] CALCIUM 8.9 8.5 - 10.5 mg/dL 04/19/2025 10:45 PM EDT [facility] TOTAL PROTEIN 7.1 6.0 - 8.0 g/dL 04/19/2025 10:45 PM EDT [facility] ALBUMIN 4.1 3.2 - 5.3 g/dL 04/19/2025 10:45 PM EDT [facility] ALKALINE PHOSPHATASE 82 39 - 130 U/L 04/19/2025 10:45 PM EDT [facility] AST 17 <=41 U/L 04/19/2025 10:45 PM EDT [facility] ALT 20 <=40 U/L 04/19/2025 10:45 PM EDT [facility] BILIRUBIN,TOTAL 0.9 0.3 - 1.2 mg/dL 04/19/2025 10:45 PM EDT [facility] EGFR Non-Race Dependent >90 >=60 ml/min/1.7 3sq.m 04/19/2025 10:45 PM EDT [facility] Comment: eGFR not reported due to non-numeric value for Creatinine. Reported eGFR is based on the CKD-EPI 2020 equation that does not use a race coefficient. Blood Venous blood / Unknown Venipuncture / Unknown 04/19/2025 9:39 PM EDT 04/19/2025 9:47 PM EDT us Edd Mendoza MD LAB BLOOD ORDERABLES Final Re sult [facility] [address] [place] [address], * ECG 12 lead (04/19/2025 8:41 PM EDT) 04/19/2025 8:41 PM EDT us Edd Mendoza MD ECG ORDERABLES Final Result [facility] from Last 3 Months Insurance [employer] [place] [employer] Care Teams Mechanical Door Repairer Relationship Specialty Start Date End Date Bryan Dejesus MD [address] [address] PCP - General Internal Medicine 04/19/25
--- OUTSIDE RECORDS SUMMARY | 2025-05-30 07:03 | XMS_ITS | Encounter Summary ---
Author Organization [facility] Address [address] [place] [address] Care Team Providers Care Collision Repairer Name Role Phone Bryan Dejesus MD Primary Care Provider [phone] Bryan Dejesus MD Unavailable [phone] Walls Kavya REY Unavailable Encounter Details Date Type Department Care Team (Late Contact Info) Description 05/12/2023 Orders Only [facility] [address] [facility] [address] [place] [address] Loan Lovell MA Social History Tobacco Use Types Packs/Day Years [...] 9:30 AM EST Office Visit [facility] [place] [facility] [address] [facility] 110 [place] [address] Bryan Dejesus MD [address] [facility] 110 [place], [place] [id number] documented as of this encounter Visit Diagnoses Not on filedocumented in this encounter Care Teams Collision Repairer Relationship Specialty Start Date End Date Bryan Dejesus MD [address] [facility] [address] [place] [address] PCP - General Internal Medicine 02/22/23 Bryan Dejesus MD [address] [facility] [address] [place] [address] PCP - ACO Reach 09/21/24 Kavya Walls LPN [address] [facility] 110 [place] [address] 04/22/25 04/23/25 documented as of this encounter
--- OUTSIDE RECORDS SUMMARY | 2025-05-30 07:03 | XMS_ITS | Encounter Summary ---
Author Organization [facility] Address [address] [place] [address] Care Team Providers Care Furnace Attendant Name Role Phone Bryan Dejesus MD Primary Care Provider Bryan Dejesus MD Unavailable [phone] Kavya Walls LPN Unavailable Encounter Details Date Type Department Care Team (Late st Contact Info) Description 12/03/2024 Abstract [facility] [place] [facility] [address] [facility] 110 [place] [address] Bryan Dejesus MD [address] [facility] 110 [place] [address] Social History Tobacco Use Types Packs/Day Years Used Date Smoking Tobacco: Every Day Cigarettes 1 43 Smokeless Tobacco: Never Alcohol Use Standard Drinks/Week Comments Yes 2 (1 standard drink = 0.6 oz pure alcohol) 2-4 times a month,,,caffeine intake: coffee, soda/pop PHQ-2 Answer Date Recorded Patient Health Questionnaire-2 Score 0 12/03/2024 Sex and Gender Information Value Date Recorded Sex Assigned at Not on file Legal Sex Male 9:34 PM EDT Gender Identity Not on file Sexual Orientation Not on file documented as of this encounter Functional Status * Over the past 2 weeks, how often have you been bothered by any of the following problems? Question Answer Date of Assessment Author Little interest or pleasure in doing things Not at all 12/03/2024 8:00 AM EDT Smitha Caballero LP N Feeling down, depressed, or hopeless Not at all 12/03/2024 8:00 AM EDT Smitha Caballero [facility] N Patient Health Questionnaire -2 Score 0 12/03/2024 8:00 AM EDT Smitha Caballero LP N documented as of this encounter Plan of Treatment Upcoming Encounters Date Type Department Care Team (Late st Contact Info) Description 06/20/2025 9:30 AM EST Office Visit [facility] [place] [facility] [address] [facility] [address] [place] [address] Bryan Dejesus MD [address] [facility] 110 [place] [address] documented as of this encounter Visit Diagnoses Not on filedocumented in this encounter Care Teams Furnace Attendant Relationship Specialty Start Date End Date rByan Dejesus MD [address] [facility] 110 [place] [address] PCP - General Internal Medicine 02/22/23 Bryan Dejesus MD [address] [facility] [address] [place] [address] PCP - ACO Reach 09/21/24 Kavya Walls LPN [address] [facility] [address] [place] [address] 04/22/25 04/23/25 documented as of this encounter
--- OUTSIDE RECORDS SUMMARY | 2025-05-30 07:03 | XMS_ITS | Encounter Summary ---
Author Organization [facility] Address [address] [place] [facility] [place] [place] [address] Care Team Providers Care Vacuum Plastic Forming Machine Operator Name Role Phone Bryan Dejesus MD Primary Care Provider [phone] Bryan Dejesus MD Unavailable [phone] Walls Kavya CANDIDO Unavailable Encounter Details Date Type Department Care Team (Late Contact Info) Description 07/12/2023 Abstract [facility] [place] [facility] [address] [facility] [address] [place] [address] Bryan Dejesus MD [address] [facility] [address] [place], [place] [id number] Social History Tobacco Use Types Packs/Day Years Used Date Smoking Tobacco: Every Day Cigarettes 1 43 Smokeless Tobacco: Never Alcohol Use Standard Drinks/Week Comments Yes 2 (1 standard drink = 0.6 oz pure alcohol) 2-4 times a month,,,caffeine: coffee, soda/pop Sex and Gender Information Value Date Recorded Sex Assigned at Not on file Legal Sex Male 9:34 PM EDT Gender Identity Not on file Sexual Orientation Not on file documented as of this encounter Plan of Treatment Upcoming Encounters Date Type Department Care Team (Late Contact Info) Description 06/20/2025 9:30 AM EST [facility] Visit [facility] [place] [facility] [address] [facility] [address] [place] [address] Bryan Dejesus MD [address] [facility] 110 [place], [place] [phone] documented as of this encounter Visit Diagnoses Not on filedocumented in this encounter Care Teams Vacuum Plastic Forming Machine Operator Relationship Specialty Start Date End Date Bryan Dejesus MD [address] [facility] 110 [place] [address] PCP - General Internal Medicine 02/22/23 Bryan Dejesus MD [address] [facility] [address] [place] [address] PCP - ACO Reach 09/21/24 Kavya Walls LPN [address] [facility] 110 [place] [address] 04/22/25 04/23/25 documented as of this encounter
--- OUTSIDE RECORDS SUMMARY | 2025-05-30 07:03 | XMS_ITS | Encounter Summary ---
Author Organization [facility] Address [address] [place] [address] Care Team Providers Care Repair Department Supervisor Name Role Phone Bryan Dejesus MD Primary Care Provider [phone] Bryan Dejesus MD Unavailable [phone] Encounter Details Date Type Department Care Team (Late Contact Info) Description 05/28/2025 Orders Only [facility] [place] [facility] [address] [facility] [address] [place] [address] Bryan Dejesus MD [address] [facility] 110 [place] [address] Abnormal x-ray of lung Social History Tobacco Use Types Packs/Day Years Used Date Smoking Tobacco: Every Day Cigarettes 1 43 Smokeless Tobacco: Never Alcohol Use Standard Drinks/Week Comments Yes 2 (1 standard drink = 0.6 oz pure alcohol) 2-4 times a month,,,caffeine intake: coffee, soda/pop PHQ-2 Answer Date Recorded Patient Health Questionnaire-2 Score 0 05/08/2025 Sex and Gender Information Value Date Recorded Sex Assigned at Not on file Legal Sex Male 9:34 PM EDT Gender Identity Not on file Sexual Orientation Not on file documented as of this encounter Plan of Treatment Upcoming Encounters Date Type Department Care Team (Late Contact Info) Description 06/20/2025 9:30 AM EST Office Visit [facility] [place] [facility] [address] [facility] [address] [place] [phone] Bryan Dejesus MD [address] [facility] 110 [place], [place] [id number] Scheduled Orders Name Type Priority Associated Diagnoses Orde r Schedule Creatinine Lab Routine Abnormal x-ray of lung Expected: 05/28/2025 (Approximate), Expires: 05/28/2026 documented as of this encounter Visit Diagnoses Diagnosis Abnormal x-ray of lung documented in this encounter Care Teams Repair Department Supervisor Relationship Specialty Start Date End Date Bryan Dejesus MD [address] [facility] 110 [place] [address] PCP - General Internal Medicine 02/22/23 Bryan Dejesus MD [address] [facility] [address] [place] [address] PCP - ACO Reach 09/21/24 documented as of this encounter
--- OUTSIDE RECORDS SUMMARY | 2025-05-30 07:03 | XMS_ITS | Clinical Summary ---
Author Organization [facility] Healthcare Address [address] [place] [address] Care Team Providers Care Director Of Investigations Name Role Phone Bryan eDjesus MD Primary Care Provider [phone] Bryan Dejesus MD Unavailable [phone] Allergies No known active allergies Medications aspirin 81 MG EC tablet Take 81 mg by mouth in the morning. Active atorvastatin (Lipitor) 40 MG tablet Take 40 mg by mouth in the morning. Active Buprenorphine HCl-Naloxone HCl (Suboxone) 8-[address] 1 Film under the tongue in the morning. Active lisinopril 10 MG tablet Take 10 mg by mouth in the morning. Active metoprolol succinate XL (Toprol-XL) 50 MG 24 hr tablet Take 50 mg by mouth in the morning. Active omeprazole OTC (PriLOSEC OTC) 20 MG EC tablet Take 20 mg by mouth in the morning. Take before meals. Active hydroCHLOROthiazid e (HYDRODiuril) 12.5 MG tablet Take 12.5 mg by mouth Daily Active ezetimibe (Zetia) 10 MG tablet Take 10 mg by mouth Daily Active ibuprofen 800 MG tabletIndications: Primary osteoarthritis of right foot Take 1 tablet (800 mg) by mouth every 8 (eight) hours if needed for mild pain 270 tablet 3 12/04/19 25 026 Active furosemide (Lasix) 20 MG tablet Take 20 mg by mouth Daily as needed 04/25/20 25 026 Active sildenafil (Viagra) 50 MG tabletIndications: Erectile dysfunction, unspecified erectile dysfunction type Take 1 tablet (50 mg) by mouth Daily as needed for erectile dysfunction 10 tablet 3 05/08/20 25 026 Active Active Problems Problem Noted Date Diagnosed Date Adenomatous polyp of ascending colon 03/01/2024 Primary osteoarthritis of right foot 09/01/2023 Obstructive lung disease 05/24/2023 Benign essential HTN 04/10/2023 Chest pain 04/10/2023 Chronic GERD 04/10/2023 Edema 04/10/2023 Type 2 diabetes mellitus with other specified co mplication 02/24/2023 Chronic systolic congestive heart failure 2022 Cigarette nicotine dependence, uncomplicated 07/2023 Coronary artery disease invo lving jamul coronary artery of jamul heart without angina pectoris 02/23/2023 Diverticulosis of large intestine without hemorr rhys 02/23/2023 Dysphagia 02/23/2023 Hepatic steatosis 02/23/2023 Other chronic pain 02/23/2023 Pure hypercholesterolemia 02/23/2023 Sigmoid diverticulosis 02/23/2023 Resolved Problems Problem Noted Date Diagnosed Date Resolved Date Abnormal CBC 05/24/2023 03/01/2024 Hyperlipidemia 04/10/2023 03/01/2024 Impaired glucose tolerance test 02/23/2023 02/24/2023 Encounters Date Type Department Care Team Description 05/28/2025 [facility] [address] [facility] [address] [place] [address] Bryan Dejesus MD Abnormal x-ray of lung 05/08/2025 9:15 AM EDT Office Visit [facility] [place] [facility] [address] [place] [address] Bryan Dejesus MD Abnormality of lung on chest x-ray (Primary Dx); Type 2 diabetes mellitus with other specified complication, without long-term current use of insulin (HCC); Erectile dysfunction, unspecified erectile dysfunction type 05/08/2025 Bamboo flowsheet [facility] [place] [facility] [address] [place] [address] Bryan Dejesus MD 05/08/2025 Travel 04/23/2025 Patient Outreach [facility] [address] [facility] [place] [address] Kavya Walls LPN 04/23/2025 Patient Outreach [facility] [address] [place] [address] Kavya Walls LPN 03/27/2025 [facility] [place] [facility] [address] [place] [address] Smitha Caballero, CANDIDO Cigarette nicotine dependence, uncomplicated from Last 3 Months Immunizations Immunization Administration Dates Next Due Influenza, High Dose Seasonal, Preservative Free 07/08/2024 Influenza, High-dose Seasona l, Quadrivalent, Preservative Free 06/27/2023 Influenza, injectable, quadrivalent, preservativ e free 06/24/2022,05/19/2020 Influenza, live, intranasal, quadrivalent 2017 Pneumococcal Conjugate PCV 20 07/08/2024 Pneumococcal Polysaccharide PPSV23 08/16/2017 RSV, recombinant, protein kovacs bunit RSVpreF, adjuvant reconstitu, 120mcg/0.5mL, PF (Arexvy) 07/16/2024 Zoster, Recombinant 05/19/2020 Family History Medical History Relation Name Comments Cancer Father Relation Name Status Comments Brother Alive x3 Father Mother Alive Sister Alive x2 Social History Tobacco Use Types Packs/Day Years Used Date Smoking Tobacco: Every Day Cigarettes 1 43 Smokeless Tobacco: Never Tobacco Cessation:Ready to Q uit: Not Asked; Counseling Given: Yes Alcohol Use Standard Drinks/Week Comments Yes 2 [...] Sign Reading Time Taken Comments Blood Pressure 136/84 05/08/2025 9:11 AM EDT Pulse 57 05/08/2025 9:11 AM EDT Temperature - - Respiratory Rate 15 12/13/2023 8:40 AM EDT Oxygen Saturation 98% 05/08/2025 9:11 AM EDT Inhaled Oxygen Concentration - - Weight 102 kg (225 lb) 05/08/2025 9:11 AM EDT Height 175.3 cm (5' 9 ) 05/08/2025 9:11 AM EDT Body Mass Index 33.23 05/08/2025 9:11 AM EDT Plan of Treatment Upcoming Encounters Date Type Department Care Team (Late st Contact Info) Description 06/20/2025 9:30 AM EST Office Visit [facility] [place] [facility] [address] [facility] [address] [place] [address] Bryan Dejesus MD 112 [facility] 110 [place] [address] Health Maintenance Due Date Last Done Comments CT Colonography 1957 FIT-DNA 1957 FIT 1957 FOBT 1957 Lung Cancer Screening Shared Decision Making 1957 Sigmoidoscopy 1957 Diabetes: Retinopathy Screening 11/16/1967 Diabetes: Urine Protein Screening 02/21/2025 024, 05/24/2023 Diabetes: Hemoglobin A1C 08/07/2025 025, 12/03/2024, 09/12/2024, Additional history exists Medicare Annual Wellness (AWV) 12/03/2025 12/03/2024 , 06/27/2023 Colonoscopy 02/19/2034 02/20/2024, 07/0 03/2024, 07/26/2022 Colorectal Cancer Screening 02/19/2034 Pneumococcal Vaccine: 65+ Years Completed , 08/16/2017 Influenza Vaccine Completed 05/12/2025, , 06/27/2023, Additional history exists Procedures Procedure Name Priority Date/Time Associated Diagnosis Comments POCT GLYCATED HEMOGLOBIN, TOTAL Routine 05/08/2025 9:57 AM EDT Type 2 diabetes mellitus with other specified complication, without long-term current use of insulin (HCC) MICROALBUMIN / CREATININE URINE RATIO Routine 02/22/2024 8:54 AM EDT Type 2 diabetes mellitus with other specified complication, without long-term current use of insulin (HCC) COLONOSCOPY Routine 02/20/2024 from Last 3 Months or Most Recently Relevant to Health Maintenance Results * POCT Glycated hemoglobin, total (05/08/2025 9:57 AM EDT) Hemoglobin A1C 6.2 Blood 05/08/2025 9:57 AM EDT us Bryan Dejesus MD POINT OF CARE TEST ENTER/EDIT ORDERABLES Final Result * Microalbumin / creatinine urine ratio (02/22/2024 8:54 AM EDT) CREATININE, RANDOM URINE 132 20 - 320 mg/dL [facility] ALBUMIN, URINE 0.2 See Note: mg/dL [facility] Comment: Reference Range: Reference Range Not established ALBUMIN/CREATININE RATIO, RANDOM URINE 2 <30 mg/g creat [facility] Comment: The ADA defines abnormalities in albumin excretion as follows: Albuminuria Category Result (mg/g creatinine) Normal to Mildly increased <30 Moderately increased 30-299 Severely increased > OR = 300 The ADA recommends that at least two of three specimens collected within a 3-6 month period be abnormal before considering a patient to be within a diagnostic category. Urine Urine specimen obtained by clean catch procedure / Unknown 02/22/2024 8:54 AM EDT 02/22/2024 3:17 PM EDT Narrative [facility] - 02/23/2024 1:23 PM EDT FASTING:YES FASTING: YES Resulting Agency Comment Performing Organization Information Site ID: [id number] Name: [facility] Address: [address] [place] [address], [address] [place] [id number] Director: Shorty Martínez MD us Bryan Dejesus MD LAB URINE ORDERABLES Final Res ult [facility] * (ABNORMAL) Colonoscopy (02/20/2024) Anatomical Region Laterality Modality Other 02/20/2024 Narrative 02/21/2024 9:11 AM EDT Polypectomy, Diverticulosis. Repeat in 3 years. us Y[facility] Final Resul t from Last 3 Months or Most Recently Relevant to Health Maintenance Insurance [employer] [place] Care Teams Director Of Investigations Relationship Specialty Start Date End Date Bryan Dejesus MD [address] [facility] 110 [place] [address] PCP - General Internal Medicine 02/22/23 Bryan Dejesus MD [address] [facility] 110 [place] [address] PCP - ACO Reach 09/21/24
--- OUTSIDE RECORDS SUMMARY | 2025-05-30 07:03 | XMS_ITS | Encounter Summary ---
Author Organization [facility] Address [address] [place] [address] Care Team Providers Care Obstetrics Tech Name Role Phone Bryan Dejesus MD Primary Care Provider [phone] Bryan Dejesus MD Unavailable [phone] Kvaya Walls LPN Unavailable Encounter Details Date Type Department Care Team (Late st Contact Info) Description 12/03/2024 Abstract [facility] [place] [facility] [address] [facility] 110 [place] [address] Bryan Dejesus MD 112 [facility] 110 [place] [address] Social History Tobacco Use Types [...] [facility] [place] [facility] [address] [facility] 110 [place] [address] Bryan Dejesus MD [address] [facility] 110 [place] [address] documented as of this encounter Visit Diagnoses Not on filedocumented in this encounter Care Teams Obstetrics Tech Relationship Specialty Start Date End Date Bryan Dejesus MD [address] [facility] 110 [place] [address] PCP - General Internal Medicine 02/22/23 Bryan Dejesus MD [address] [facility] 110 [place] [address] PCP - ACO Reach 09/21/24 Kavya Walls LPN [address] [facility] [address] [place] [address] 04/22/25 04/23/25 documented as of this encounter
--- OUTSIDE RECORDS SUMMARY | 2025-05-30 07:03 | XMS_ITS | Encounter Summary ---
Author Organization [facility] Address [address] [facility] [place] [address] Care Team Providers Care Superintendent Power Name Role Phone Bryan Dejesus MD Primary Care Provider [phone] Bryan Dejesus MD Unavailable [phone] Walls Kavya CANDIDO Unavailable Encounter Details Date Type Department Care Team (Late Contact Info) Description 07/12/2023 Abstract [facility] [place] [facility] [address] [facility] 110 [place] [address] Bryan Dejesus MD [address] [facility] 110 [place], [place] [id number] Social History Tobacco Use Types Packs/Day Years [...] 9:30 AM EST Office Visit [facility] [place] [facility] [address] [facility] 110 [place] [address] Bryan Dejesus MD [address] [facility] 110 [place], [place] [phone] documented as of this encounter Visit Diagnoses Not on filedocumented in this encounter Care Teams Superintendent Power Relationship Specialty Start Date End Date Bryan Dejesus MD [address] [facility] 110 [place] [address] PCP - General Internal Medicine 02/22/23 Bryan Dejesus MD [address] [facility] 110 [place] [address] PCP - ACO Reach 09/21/24 Kavya Walls LPN [address] [facility] 110 [place] [address] 04/22/25 04/23/25 documented as of this encounter
--- OUTSIDE RECORDS SUMMARY | 2025-05-30 07:03 | XMS_ITS | Encounter Summary ---
Author Organization [facility] Address [address] [facility] [place] [address] Care Team Providers Care Unitizer Name Role Phone Bryan Dejesus MD Primary Care Provider [phone] Bryan Dejesus MD Unavailable [phone] Walls Kavya CANDIDO Unavailable Encounter Details Date Type Department Care Team (Late Contact Info) Description 06/28/2023 Abstract [facility] [place] [facility] [address] [facility] 110 [place] [address] Bryan Dejesus MD [address] [facility] 110 [place], [place] [phone] Social History Tobacco Use Types Packs/Day Years [...] 9:30 AM EST Office Visit [facility] [place] [facility] [address] [facility] 110 [place] [address] Bryan Dejesus MD [address] [place] [facility] 110 [place], [place] [phone] documented as of this encounter Visit Diagnoses Not on filedocumented in this encounter Care Teams Unitizer Relationship Specialty Start Date End Date Bryan Dejesus MD [address] [facility] 110 [place] [address] PCP - General Internal Medicine 02/22/23 Bryan Dejesus MD [address] [facility] 110 [place] [address] PCP - ACO Reach 09/21/24 Kavya Walls LPN [address] [facility] 110 [place] [address] 04/22/25 04/23/25 documented as of this encounter
--- OUTSIDE RECORDS SUMMARY | 2025-05-30 07:03 | XMS_ITS | Encounter Summary ---
Author Organization [facility] Address [address] [place] [address] Care Team Providers Care Sodium Methylate Operator Name Role Phone Bryan Dejesus MD Primary Care Provider [phone] Bryan Dejesus MD Unavailable [phone] Titi Kavya REY Unavailable Encounter Details Date Type Department Care Team (Late Contact Info) Description 06/01/2023 Abstract [facility] 112 [facility] 120 [place] [address] Clemente Ching, DPM 3[address] [facility] 5 [place] [address] Social History Tobacco Use Types Packs/Day Years [...] 06/20/2025 9:30 AM EST Office Visit [facility] 112 [facility] 110 [place] [address] Bryan Dejesus MD 112 [facility] 110 [place], [place] [phone] documented as of this encounter Visit Diagnoses Not on filedocumented in this encounter Care Teams Sodium Methylate Operator Relationship Specialty Start Date End Date Bryan Dejesus MD [address] [facility] 110 [place] [address] PCP - General Internal Medicine 02/22/23 Bryan Dejesus MD [address] [facility] 110 [place] [address] PCP - ACO Reach 09/21/24 Kavya Walls LPN [address] [facility] 110 [place] [address] 04/22/25 04/23/25 documented as of this encounter
--- OUTSIDE RECORDS SUMMARY | 2025-05-30 07:03 | XMS_ITS | Encounter Summary ---
Author Organization [facility] Address [address] [place] [address] Care Team Providers Care Frame Straightener Name Role Phone Bryan Dejesus MD Primary Care Provider [phone] Bryan Dejesus MD Unavailable [phone] Kavya Walls SIDE SEAM TENDER Unavailable Encounter Details Date Type Department Care Team (Late Contact Info) Description 03/27/2025 Orders Only [facility] [facility] [address] [facility] 110 [place] [phone] Smitha Caballero LPN [address] [place] [address] Cigarette nicotine dependence, uncomplicated Social History Tobacco Use Types Packs/Day Years [...] [facility] [place] [facility] [address] [place] [address] Bryan Dejesus MD [address] [facility] 110 [place], [place] [phone] documented as of this encounter Visit Diagnoses Diagnosis Cigarette nicotine dependence, uncomplicated documented in this encounter Care Teams Frame Straightener Relationship Specialty Start Date End Date Bryan Dejesus MD [address] [address] PCP - General Internal Medicine 02/22/23 Bryan Dejesus MD [address] [address] PCP - ACO Reach 09/21/24 Kavya Walls LPN [address] [address] 04/22/25 04/23/25 documented as of this encounter
--- OUTSIDE RECORDS SUMMARY | 2025-05-30 07:03 | XMS_ITS | Encounter Summary ---
Author Organization [facility] Address [address] [place] [address] Care Team Providers Care Lock Maintenance Supervisor Name Role Phone Bryan Dejesus MD Primary Care Provider [phone] Bryan Dejesus MD Unavailable [phone] Titi Kavya CANDIDO Unavailable Encounter Details Date Type Department Care Team (Late Contact Info) Description 02/24/2023 Abstract [facility] [place] [facility] [address] [facility] 110 [place] [address] Bryan Dejesus MD 112 [facility] 110 [place], [place] [phone] Social History Tobacco Use Types Packs/Day Years Used Date Smoking Tobacco: Every Day Cigarettes Smokeless Tobacco: Never Tobacco Cessation:Ready to Q uit: Not Asked; Counseling Given: Not Answered Alcohol Use Standard Drinks/Week Comments Yes 1 [...] AM EST Office Visit [facility] [place] [facility] [address] [facility] 110 [place] [address] Bryan Dejesus MD 112 [facility] 110 [place] [address] documented as of this encounter Visit Diagnoses Not on filedocumented in this encounter Care Teams Lock Maintenance Supervisor Relationship Specialty Start Date End Date Bryan Dejesus MD [address] [facility] 110 [place] [address] PCP - General Internal Medicine 02/22/23 Bryan Dejesus MD [address] [facility] 110 [place] [address] PCP - ACO Reach 09/21/24 Kavya Walls LPN [address] [address] 04/22/25 04/23/25 documented as of this encounter
--- OUTSIDE RECORDS SUMMARY | 2025-05-30 07:03 | XMS_ITS | Encounter Summary ---
Author Organization [facility] Address [address] [place] [address] Care Team Providers Care Manufacturing Operator Name Role Phone Bryan Dejesus MD Primary Care Provider [phone] Bryan Dejesus MD Unavailable [phone] Walls Kavya CANDIDO Unavailable Encounter Details Date Type Department Care Team (Late Contact Info) Description 07/12/2023 Abstract [facility] [place] [facility] [address] [facility] 110 [place] [address] Bryan Dejesus MD 112 [facility] 110 [place], [place] [phone] Social History Tobacco Use Types Packs/Day Years [...] 9:30 AM EST [facility] [place] [facility] [address] [facility] 110 [place] [address] Bryan Dejesus MD 112 [facility] 110 [place], [place] [phone] documented as of this encounter Visit Diagnoses Not on filedocumented in this encounter Care Teams Manufacturing Operator Relationship Specialty Start Date End Date Bryan Dejesus MD [address] [facility] 110 [place] [address] PCP - General Internal Medicine 02/22/23 Bryan Dejesus MD [address] [facility] 110 [place] [address] PCP - ACO Reach 09/21/24 Kavya Walls LPN [address] [facility] 110 [place] [address] 04/22/25 04/23/25 documented as of this encounter
--- OUTSIDE RECORDS SUMMARY | 2025-05-30 07:03 | XMS_ITS | Encounter Summary ---
Author Organization [facility] Address [address] [place] [address] Care Team Providers Care Industry Consultant Name Role Phone Bryan Dejesus MD Primary Care Provider [phone] Bryan Dejesus MD Unavailable [phone] Walls Kavya REY Unavailable Encounter Details Date Type Department Care Team (Late Contact Info) Description 07/12/2023 Clinisync Result Encounter N[facility] External Department Unsolicited Bryan Dejesus MD [address] [facility] [address] [place], [place] [phone] Social History Tobacco Use Types Packs/Day Years [...] [facility] [place] [facility] [address] [facility] 110 [place] [address] Bryan Dejesus MD [address] [facility] 110 [place], [place] [phone] documented as of this encounter Procedures Procedure Name Priority Date/Time Associated Diagnosis Comments CT LUNG SCREENING LOW DOSE 07/12/2023 6:28 AM EST documented in this encounter Results * CT LUNG SCREENING LOW DOSE (07/12/2023 6:28 AM EST) Anatomical Region Laterality Modality Other 07/12/2023 6:28 AM EST Narrative 07/12/2023 6:28 [place] [address] CT Scan Report Signed Patient: FRANCISCO GUADALUPE MR#: [id number] : 1955 Acct:[id number] Age/Sex: 67 / M ADM Date: 07/11/23 Loc: CT Attending Dr: BRYAN DEJESUS Ordering Physician: BRYAN DEJESUS Date of Service: 07/11/23 Procedure(s): CT lung screening low-dose Accession Number(s): [id number] cc: BRYAN DEJESUS [place] [id number] Patient Name: FRANCISCO GUADALUPE MRN: [id number] date: 1955 Sex: M Assigned Patient Location: CT Current Patient Location: Accession/Order Number: [id number] Exam Date: 07/11/2023 08:16 Report Date: 07/12/2023 06:28 At the request of: BRYAN DEJESUS Procedure: CT lung screening low-dose EXAMINATION: CT lung screening low-dose HISTORY: Cigarette Nicotine Dependence F17.210 COMPARISON: No relevant comparison available. TECHNIQUE: Axial, Coronal, and Sagittal images were created without the administration of IV contrast material. Dose reduction techniques were achieved by using automated exposure control and/or adjustment of mA and/or kV according to patient size and/or use of iterative reconstruction technique. FINDINGS: LUNGS: A few tiny granulomas. No significant chronic interstitial changes, suspicious nodules or infiltrates. PLEURA: No mass, effusion, or pneumothorax. VASCULATURE: No abnormality. DIMAS: No mass or pathologic adenopathy. MEDIASTINUM: No mass or pathologic adenopathy. CARDIAC: Marked atherosclerotic coronary artery disease. No cardiac enlargement or pericardial effusion. AORTA: No aneurysm or dissection. CHEST WALL: No mass or axillary adenopathy BONES: No bone lesion or fracture. LIMITED ABDOMEN: No suspicious findings. Limited images of the upper abdomen. OTHER: Negative. CT/CT lung screening low-dose IMPRESSION: 1. Lung-RADS Category 1 Negative. No nodules and definitely benign nodules. Continue annual screening with LDCT in 12 months. 2. Marked atherosclerotic coronary artery disease. Electronically authenticated by: CLARENCE VALLEJO Date: 07/12/2023 06:28 Dictated By: Clarence Vallejo M.D. Signed By: 07/12/23629 DD/ 7 TD/TT: Awning Installer: Procedure Note Radiology, Radiologist, MD - 07/12/2023 [place] [address] CT Scan Report Signed Patient: FRANCISCO GUADALUPE WMR#: [id number] : 1955cct:[id number] Age/Sex: 67 / MADM Date: 07/11/23 Loc: CT Attending Dr: BRYAN DEJESUS Ordering Physician: BRYAN DEJESUS Date of Service: 07/11/23 Procedure(s): CT lung screening low-dose Accession Number(s): [id number] cc: BRYAN DEJESUS [place] [id number] Patient Name: FRANCISCO GUADALUPE MRN: [id number] date: 1955 Sex: M Assigned Patient Location: CT Current Patient Location: Accession/Order Number: [id number] Exam Date: 07/11/2023 08:16 Report Date: 07/12/2023 06:28 At the request of: BRYAN DEJESUS Procedure: CT lung screening low-dose EXAMINATION: CT lung screening low-dose HISTORY: Cigarette Nicotine Dependence F17.210 COMPARISON: No relevant comparison available. TECHNIQUE: Axial, Coronal, and Sagittal images were created without the administration of IV contrast material. Dose reduction techniques were achieved by using automated exposure control and/or adjustment of mA and/or kV according to patient size and/or use of iterative reconstruction technique. FINDINGS: LUNGS: A few tiny granulomas. No significant chronic interstitial changes, suspicious nodules or infiltrates. PLEURA: No mass, effusion, or pneumothorax. VASCULATURE: No abnormality. DIMAS: No mass or pathologic adenopathy. MEDIASTINUM: No mass or pathologic adenopathy. CARDIAC: Marked atherosclerotic coronary artery disease. No cardiac enlargement or pericardial effusion. AORTA: No aneurysm or dissection. CHEST WALL: No mass or axillary adenopathy BONES: No bone lesion or fracture. LIMITED ABDOMEN: No suspicious findings. Limited images of the upperabdomen. OTHER: Negative. CT/CT lung screening low-dose IMPRESSION: 1. Lung-RADS Category 1 Negative. No nodules and definitely benignnodules. Continue annual screening with LDCT in 12 months. 2. Marked atherosclerotic coronary artery disease. Electronically authenticated by: CLARENCE VALLEJO Date: 07/12/2023 06:28 Dictated By: Clarence Vallejo M.D. Signed By:07/12/23629 DD/ 7 TD/TT: Awning Installer: Bryan Dejesus MD [facility] Final Result documented in this encounter Visit Diagnoses Not on filedocumented in this encounter Care Teams Industry Consultant Relationship Specialty Start Date End Date Bryan Dejesus MD [address] [facility] 110 [place] [address] PCP - General Internal Medicine 02/22/23 Bryan Dejesus MD [address] [facility] [address] [place] [address] PCP - ACO Reach 09/21/24 Kavya Walls LPN [address] [facility] [address] [place] [address] 04/22/25 04/23/25 documented as of this encounter
--- OUTSIDE RECORDS SUMMARY | 2025-05-30 07:03 | XMS_ITS | Encounter Summary ---
Author Organization [facility] Address [address] [place] [address] Care Team Providers Care Plug And Mold Finisher Name Role Phone Bryan Dejesus MD Primary Care Provider [phone] Bryan Dejesus MD Unavailable [phone] Kavya Walls LPN Unavailable Encounter Details Date Type Department Care Team (Late st Contact Info) Description 06/27/2023 Abstract [facility] [place] [facility] [address] [facility] 110 [place] [address] Bryan Dejesus MD [address] [facility] 110 [place] [address] Social History Tobacco Use Types [...] pleasure in doing things Not at all 06/27/2023 8:00 AM Smitha Padilla LP N Feeling down, depressed, or hopeless Not at all 06/27/2023 8:00 AM Smitha Padilla LP N Patient Health Questionnaire -2 Score 0 06/27/2023 8:00 AM EST Smitha Caballero LP N documented as of this encounter Plan of Treatment Upcoming Encounters Date Type Department Care Team (Late st Contact Info) Description 06/20/2025 9:30 AM EST Office Visit [facility] [place] [facility] [address] [facility] 110 [place] [address] Bryan Dejesus MD [address] [facility] 110 [place] [address] documented as of this encounter Visit Diagnoses Not on filedocumented in this encounter Care Teams Plug And Mold Finisher Relationship Specialty Start Date End Date Bryan Dejesus MD [address] [facility] 110 [place] [address] PCP - General Internal Medicine 02/22/23 Bryan Dejesus MD [address] [facility] 110 [place] [address] PCP - ACO Reach 09/21/24 Kavya Walls LPN [address] [facility] 110 [place] [address] 04/22/25 04/23/25 documented as of this encounter
--- OUTSIDE RECORDS SUMMARY | 2025-05-30 07:03 | XMS_ITS | Encounter Summary ---
Author Organization [facility] Address [address] [place] [address] Care Team Providers Care Special Machine Stitcher Name Role Phone Bryan Dejesus MD Primary Care Provider [phone] Bryan Dejesus MD Unavailable [phone] Walls Kavya CANDIDO Unavailable Encounter Details Date Type Department Care Team (Late Contact Info) Description 07/11/2023 Clinisync Result Encounter NOMS External Department Unsolicited Bryan Dejesus MD [address] [facility] 110 [place], [place] [address] Social History Tobacco Use Types Packs/Day Years [...] 9:30 AM EST Office Visit [facility] [place] [facility] [address] [facility] 110 [place] [phone] Bryan Dejesus MD [address] [facility] 110 [place], [place] [address] documented as of this encounter Procedures Procedure Name Priority Date/Time Associated Diagnosis Comments VASC US ABDOMINAL AORTA ANUERYSM AAA SCREENING 07/11/2023 9:21 AM EST documented in this encounter Results * Vascular US abdominal aorta anuerysm AAA screening (07/11/2023 9:21 AM EST) Anatomical Region Laterality Modality Abdomen Ultrasound 07/11/2023 9:21 AM EST Narrative 07/11/2023 9:21 [place] [address] Ultrasound Report Signed Patient: FRANCISCO GUADALUPE MR#: [id number] : 1955 Acct:[id number] Age/Sex: 67 / M ADM Date: 07/11/23 Loc: CT Attending Dr: BRYAN DEJESUS Ordering Physician: BRYAN DEJESUS Date of Service: 07/11/23 Procedure(s): US abdominal aortic aneurysm Accession Number(s): [id number] cc: BRYAN DEJESUS [place] [id number] Patient Name: FRANCISCO GUADALUPE MRN: [id number] date: 1955 Sex: M Assigned Patient Location: CT Current Patient Location: CT Accession/Order Number: [id number] Exam Date: 07/11/2023 08:20 Report Date: 07/11/2023 09:21 At the request of: BRYAN DEJESUS Procedure: US abdominal aortic aneurysm EXAM: US abdominal aortic aneurysm HISTORY: . Abdominal Aortic Aneurysm Z13.6 . COMPARISON: None. TECHNIQUE: Grayscale and color imaging was performed FINDINGS: Scanning of the abdominal aorta demonstrates the proximal aorta to measure 2.7 x 2.9 cm, mid aorta 1.8 x 2.2 cm, and the distal aorta 1.8 x 1.9 cm. Color-flow is noted throughout the aorta. Atherosclerotic changes of the abdominal aorta are noted. US/US abdominal aortic aneurysm Impression: 1. The proximal aorta is prominent measuring 8.7 x 2.9 cm. 2. The mid and distal aorta demonstrate no aneurysmal dilatation. 3. Atherosclerotic changes of the abdominal aorta. Electronically authenticated by: VIRGIL CHING Date: 07/11/2023 09:21 Dictated By: Virgil Ching M.D. Signed By: 07/11/23923 DD/ 0 TD/TT: Pelletizer Operator: Procedure Note Radiology, Radiologist, - 07/11/2023 [place] [address] Ultrasound Report Signed Patient: FRANCISCO GUADALUPE WMR#: [id number] : 1955cct:[id number] Age/Sex: 67 / MADM Date: 07/11/23 Loc: CT Attending Dr: BRYAN DEJESUS Ordering Physician: BRYAN DEJESUS Date of Service: 07/11/23 Procedure(s): US abdominal aortic aneurysm Accession Number(s): [id number] cc: BRYAN DEJESUS [place] [address] Patient Name: FRANCISCO GUADALUPE MRN: [facility]:[id number] date: 1955 Sex: M Assigned Patient Location: CT Current Patient Location: CT Accession/Order Number: [id number] Exam Date: 07/11/2023 08:20 Report Date: 07/11/2023 09:21 At the request of: BRYAN DEJESUS Procedure: US abdominal aortic aneurysm EXAM: US abdominal aortic aneurysm HISTORY: . Abdominal Aortic Aneurysm Z13.6 . COMPARISON: None. TECHNIQUE: Grayscale and color imaging was performed FINDINGS: Scanning of the abdominal aorta demonstrates the proximal aortato measure 2.7 x 2.9 cm, mid aorta 1.8 x 2.2 cm, and the distal aorta 1.8 x1.9 cm. Color-flow is noted throughout the aorta. Atherosclerotic changes of the abdominal aorta are noted. US/US abdominal aortic aneurysm Impression: 1. The proximal aorta is prominent measuring 8.7 x 2.9 cm. 2. The mid and distal aorta demonstrate no aneurysmal dilatation. 3. Atherosclerotic changes of the abdominal aorta. Electronically authenticated by: VIRGIL CHING Date: 07/11/2023 09:21 Dictated By: Virgil Ching M.D. Signed By:07/11/23923 DD/ 0 TD/TT: Pelletizer Operator: us Bryan Dejesus MD IMG US PROCEDURES Final Result documented in this encounter Visit Diagnoses Not on filedocumented in this encounter Care Teams Special Machine Stitcher Relationship Specialty Start Date End Date Bryan Dejesus MD [address] [facility] 110 [place] [address] PCP - General Internal Medicine 02/22/23 Bryan Dejesus MD [address] [facility] 110 [place] [address] PCP - ACO Reach 09/21/24 Kavya Walls LPN [address] [facility] 110 [place] [address] 04/22/25 04/23/25 documented as of this encounter
--- OUTSIDE RECORDS SUMMARY | 2025-05-30 07:03 | XMS_ITS | Encounter Summary ---
Author Organization [facility] Address [address] [place] [address] Care Team Providers Care Horticulture/Floriculture Teacher Name Role Phone Bryan Dejesus MD Primary Care Provider [phone] Bryan Dejesus MD Unavailable [phone] Walls Kavya REY Unavailable Encounter Details Date Type Department Care Team (Late Contact Info) Description 03/25/2023 Orders Only [facility] [address] [place] [address] Clemente Ching DPM [address] [address] Social History Tobacco Use Types Packs/Day [...] Description 06/20/2025 9:30 AM EST Office Visit [facility] [address] [facility] 110 [place] [phone] Bryan Dejesus MD [address] [facility] 110 [place], [place] [address] documented as of this encounter Procedures Procedure Name Priority Date/Time Associated Diagnosis Comments US FOOT RIGHT Routine 03/17/2023 12:00 PM EDT US FOOT RIGHT Routine 03/17/2023 12:00 PM EDT documented in this encounter Results * US foot right (03/17/2023 12:00 PM EDT) Anatomical Region Laterality Modality Lower Extremities, Foot Right Ultrasou nd us Clemente Ching DPNoemi IMG US PROCEDURES Final Res ult * US foot right (03/17/2023 12:00 PM EDT) Anatomical Region Laterality Modality Lower Extremities, Foot Right Ultrasou nd Clemente Ching DPNoemi IMG US PROCEDURES Final Res ult documented in this encounter Visit Diagnoses Not on filedocumented in this encounter Care Teams Horticulture/Floriculture Teacher Relationship Specialty Start Date End Date Bryan Dejesus MD [address] [facility] 110 [place] [address] PCP - General Internal Medicine 02/22/23 Bryan Dejesus MD [address] [facility] 110 [place] [address] PCP - ACO Reach 09/21/24 Kavya Walls LPN [address] [facility] 110 [place] [address] 04/22/25 04/23/25 documented as of this encounter
--- OUTSIDE RECORDS SUMMARY | 2025-05-30 07:04 | XMS_ITS | Encounter Summary ---
Author Organization [facility] Address [address] [place] [address] Care Team Providers Care Director Of Placement Name Role Phone Bryan Dejesus MD Primary Care Provider [phone] Bryan Dejesus MD Unavailable [phone] Kavya Walls CANDIDO Unavailable Encounter Details Date Type Department Care Team (Late Contact Info) Description 04/28/2023 Clinisync Result Encounter N[facility] External Department Unsolicited [...] 9:30 AM EST Office Visit [facility] [address] [facility] 110 [place] [address] Bryan Dejesus MD [address] [facility] 110 [place], [place] [phone] documented as of this encounter Procedures Procedure Name Priority Date/Time Associated Diagnosis Comments MR FOOT RT WO CON 04/28/2023 12: 49 PM EDT documented in this encounter Results * MR FOOT RT WO CON (04/28/2023 12:49 PM EDT) Anatomical Region Laterality Modality Other 04/28/2023 12:4 9 PM EDT Narrative 04/28/2023 12:49 PM EDT [address] [address] Magnetic Resonance Report Signed Patient: FRANCISCO BALLARD MR#: [id number] : 1955 Acct:[id number] Age/Sex: 67 / M ADM Date: 04/28/23 Loc: MRI Attending Dr: NAYELY HERNANDES Ordering Physician: NAYELY HERNANDES Date of Service: 04/28/23 Procedure(s): MR foot RT wo con Accession Number(s): [id number] cc: BRYAN DEJESUS ; NAYELY HERNANDES [place] [address] Patient Name: FRANCISCO BALLARD MRN: [id number] date: 1955 Sex: M Assigned Patient Location: MRI Current Patient Location: MRI Accession/Order Number: [id number] Exam Date: 04/28/2023 09:00 Report Date: 04/28/2023 12:49 At the request of: NAYELY HERNANDES Procedure: MR foot RT wo con EXAM: MR foot RT wo con REASON FOR EXAM: Plantar Fasciitis M72.2. TECHNIQUE: Multiplanar, multisequence imaging of the right foot was performed without contrast COMPARISON: No recent relevant imaging. FINDINGS: There is fusiform thickening and intermediate signal involving the Achilles tendon with linear fluid: Signal along the deep fibers laterally suspicious for low-grade partial tearing. Enthesophytes are noted. No evidence of complete tear. Thickening and intermediate signal involving the medial cord of the plantar fascia. There is complete tear of the medial cord with surrounding edema. The lateral cord appears intact. Inferior calcaneal spur is noted. Laterally, thickening and intermediate signal of the peroneal tendons is consistent with tendinosis. There is short segment high-grade partial tear of the inframalleolar peroneus brevis tendon (series 4, images 9-12). A complete rupture not confidently identified. Mild tenosynovitis. The superficial peroneal retinaculum is intact. Thickening and intermediate signal involving the anterior talofibular and calcaneofibular ligaments suggesting prior ligamentous injury. No definite acute lateral ligamentous injury. Medially, the medial flexor tendons demonstrate normal thickness and signal without tendinosis or tear. The deep deltoid ligament is dysmorphic suggesting deep deltoid ligament sprain, remote. The spring ligament is intact. Lisfranc ligament is intact. Anteriorly, the anterior extensor tendons demonstrate normal thickness and signal without tendinosis or tear. The bone marrow signal is without acute fracture. Moderate to severe tibiotalar and subtalar osteoarthritis. The sinus tarsi is nonedematous. Moderate midfoot osteoarthritis. The plantar musculature demonstrates normal bulk and signal. MR/MR foot RT wo con IMPRESSION: 1. Chronic plantar fasciopathy with complete tear of the medial cord of the plantar fascia from its calcaneal attachment. 2. High-grade partial tearing of the inframalleolar peroneus brevis tendon. A complete rupture not identified. 3. Achilles tendinosis with low-grade partial tearing. 4. Sequela of medial lateral ligamentous injury. No definite acute ligamentous injury. 5. 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 Signed By: 04/28/23 1252 DD/ 1249 TD/TT: Radio Communications Mechanician: Procedure Note Radiology, Radiologist, MD - 05/06/2023 [place] [address] Magnetic Resonance Report Signed Patient: FRANCISCO BALLARD WMR#: [id number] : 8Acct:[id number] Age/Sex: 67 / MADM Date: 04/28/23 Loc: MRI Attending Dr: NAYELY HERNANDES Ordering Physician: NAYELY HERNANDES Date of Service: 04/28/23 Procedure(s): MR foot RT wo con Accession Number(s): [id number] cc: BRYAN DEJESUS ; NAYELY HERNANDES [place] [id number] Patient Name: FRANCISCO BALLARD MRN: [id number] date: 1955 Sex: M Assigned Patient Location: MRI Current Patient Location: MRI Accession/Order Number: [id number] Exam Date: 04/28/2023 09:00 Report Date: 04/28/2023 12:49 At the request of: NAYELY HERNANDES Procedure: MR foot RT wo con EXAM: MR foot RT wo con REASON FOR EXAM: Plantar Fasciitis M72.2. TECHNIQUE: Multiplanar, multisequence imaging of the right foot wasperformed without contrast COMPARISON: No recent relevant imaging. FINDINGS: There is fusiform thickening and intermediate signal involving theAchilles tendon with linear fluid: Signal along the deep fibers laterallysuspicious for low-grade partial tearing. Enthesophytes are noted. No evidence ofcomplete tear. Thickening and intermediate signal involving the medial cord of theplantar fascia. There is complete tear of the medial cord with surrounding edema.The lateral cord appears intact. Inferior calcaneal spur is noted. Laterally, thickening and intermediate signal of the peroneal tendons is consistent with tendinosis. There is short segment high-grade partial tearof the inframalleolar peroneus brevis tendon (series 4, images 9-12). Acomplete rupture not confidently identified. Mild tenosynovitis. The superficial peroneal retinaculum is intact. Thickening and intermediate signalinvolving the anterior talofibular and calcaneofibular ligaments suggesting prior ligamentous injury. No definite acute lateral ligamentous injury. Medially, the medial flexor tendons demonstrate normal thickness andsignal without tendinosis or tear. The deep deltoid ligament is dysmorphicsuggesting deep deltoid ligament sprain, remote. The spring ligament is intact.Lisfranc ligament is intact. Anteriorly, the anterior extensor tendons demonstrate normal thickness and signal without tendinosis or tear. The bone marrow signal is without acute fracture. Moderate to severe tibiotalar and subtalar osteoarthritis. The sinus tarsi is nonedematous. Moderatemidfoot osteoarthritis. The plantar musculature demonstrates normal bulk andsignal. MR/MR foot RT wo con IMPRESSION: 1. Chronic plantar fasciopathy with complete tear of the medial cord ofthe plantar fascia from its calcaneal attachment. 2. High-grade partial tearing of the inframalleolar peroneus brevistendon. A complete rupture not identified. 3. Achilles tendinosis with low-grade partial tearing. 4. Sequela of medial lateral ligamentous injury. No definite acuteligamentous injury. 5. 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 Signed By:04/28/23 1252 DD/ 1249 TD/TT: Radio Communications Mechanician: us Generic External Data Provider [facility] Final Result documented in this encounter Visit Diagnoses Not on filedocumented in this encounter Care Teams Director Of Placement Relationship Specialty Start Date End Date Bryan Dejesus MD [address] [address] PCP - General Internal Medicine 02/22/23 Bryan Dejesus MD [address] [facility] 110 [place] [address] PCP - ACO Reach 09/21/24 Kavya Walls LPN [address] [address] 04/22/25 04/23/25 documented as of this encounter
--- OUTSIDE RECORDS SUMMARY | 2025-05-30 07:04 | XMS_ITS | Encounter Summary ---
Author Organization [facility] Address [address] [facility] [place] [address] Care Team Providers Care Heeler Name Role Phone Bryan Dejesus MD Primary Care Provider [phone] Bryan Dejesus MD Unavailable [phone] Walls Kavya CANDIDO Unavailable Encounter Details Date Type Department Care Team (Late Contact Info) Description 02/20/2024 Abstract [facility] [place] [address] [facility] 110 [place] [address] Bryan Dejesus MD [address] [place] [facility] 110 [place], [place] [address] Social History Tobacco Use Types Packs/Day Years [...] AM EST Office Visit [facility] [place] [facility] [address] [facility] 110 [place] [address] Bryan Dejesus MD [address] [place] [facility] 110 [place], [place] [address] documented as of this encounter Visit Diagnoses Not on filedocumented in this encounter Care Teams Heeler Relationship Specialty Start Date End Date Bryan Dejesus MD [address] [facility] 110 [place] [address] PCP - General Internal Medicine 02/22/23 Bryan Dejesus MD [address] [facility] 110 [place] [address] PCP - ACO Reach 09/21/24 Kavya Walls LPN [address] [facility] 110 [place] [address] 04/22/25 04/23/25 documented as of this encounter
--- OUTSIDE RECORDS SUMMARY | 2025-05-30 07:04 | XMS_ITS | Encounter Summary ---
Author Organization [facility] Address [address] [place] [address] Care Team Providers Care Mortgage Loan Processing Clerk Name Role Phone Bryan Dejesus MD Primary Care Provider [phone] Bryan Dejesus MD Unavailable [phone] Walls Kavya CANDIDO Unavailable Encounter Details Date Type Department Care Team (Late Contact Info) Description 02/22/2024 Orders Only [facility] [place] [facility] [address] [facility] 110 [place] [address] Unallocated, Noms Provider, [address] [place] [address] Social History Tobacco Use Types Packs/Day Years [...] [facility] [place] [facility] [address] [facility] 110 [place] [address] Bryan Dejesus MD [address] [facility] 110 [place], [place] [id number] documented as of this encounter Procedures Procedure Name Priority Date/Time Associated Diagnosis Comments COLONOSCOPY DIAGNOSTIC Routine 02/20/2024 8:29 AM EDT documented in this encounter Results * COLONOSCOPY DIAGNOSTIC (02/20/2024 8:29 AM EDT) Anatomical Region Laterality Modality Radiographic Ebonie ging us Noms Provider Unallocated MD PATE XR PROCEDURES F inal Result documented in this encounter Visit Diagnoses Not on filedocumented in this encounter Care Teams Mortgage Loan Processing Clerk Relationship Specialty Start Date End Date Bryan Dejesus MD [address] [facility] 110 [place] [address] PCP - General Internal Medicine 02/22/23 Bryan Dejesus MD [address] [facility] 110 [place] [address] PCP - ACO Reach 09/21/24 Kavya Walls LPN [address] [facility] 110 [place] [address] 04/22/25 04/23/25 documented as of this encounter
--- OUTSIDE RECORDS SUMMARY | 2025-05-30 07:04 | XMS_ITS | Encounter Summary ---
Author Organization [facility] Address [address] [place] [address] Care Team Providers Care Document Specialist Name Role Phone Bryan Dejesus MD Primary Care Provider [phone] Bryan Dejesus MD Unavailable [phone] Kavya Walls LPN Unavailable Encounter Details Date Type Department Care Team (Late st Contact Info) Description 05/03/2023 [facility] 112 [facility] 110 [place] [address] Clemente Ching DPM 3006 [facility] 5 [place] [address] Social History Tobacco Use Types [...] on file documented as of this encounter Miscellaneous Notes * Result Encounter Note - Clemente Ching DPM - 05/03/2023 11:39 AM EDT Patient in need of follow up of MRI in near future for MRI report, unable to read full report however as was cut off and sent to Ranjit Dejesus office insteade documented in this encounter Plan of Treatment Upcoming Encounters Date Type Department Care Team (Late st Contact Info) Description 06/20/2025 9:30 AM EST Office Visit [facility] [place] [facility] [address] [facility] 110 [place] [address] Bryan Dejesus MD [address] [facility] 110 [place] [address] documented as of this encounter Procedures Procedure Name Priority Date/Time Associated Diagnosis Comments MRI FOOT RT WITHOUT CONTRAST Routine 04/28/2023 11:39 AM EDT documented in this encounter Results * MRI FOOT RT WITHOUT CONTRAST (04/28/2023 11:39 AM EDT) Anatomical Region Laterality Modality Radiographic Ebonie ging Clemente Ching DPM IMG XR PROCEDURES Final Res ult documented in this encounter Visit Diagnoses Not on filedocumented in this encounter Care Teams Document Specialist Relationship Specialty Start Date End Date Bryan Dejesus MD [address] [facility] 110 [place] [address] PCP - General Internal Medicine 02/22/23 Bryan Dejesus MD [address] [facility] 110 [place] [address] PCP - ACO Reach 09/21/24 Kavya Walls LPN [address] [facility] 110 [place] [address] 04/22/25 04/23/25 documented as of this encounter
--- OUTSIDE RECORDS SUMMARY | 2025-05-30 07:04 | XMS_ITS | Encounter Summary ---
Author Organization [facility] Address [address] [place] [address] Phone Care Team Providers Care Barbed Wire Machine Operator Name Role Phone Bryan Dejesus MD Primary Care Provider [phone] Encounter Details Date Type Department Care Team (Late Contact Info) Description 05/07/2025 Results Follow-Up [address] Curtis 2 [facility] 320 [place] [address] Caden Peterson MD [address] [place] [address] [address] Curtis [address], [place] 320 [place] [address] Lipid Panel Social History Tobacco Use Types Packs/Day Years Used Date Smoking Tobacco: Every Day Cigarettes Smokeless Tobacco: Never Alcohol Use Standard Drinks/Week Comments Yes 0 (1 standard drink = 0.6 oz pur e alcohol) Sex and Gender Information Value Date Recorded Sex Assigned at Not on file Legal Sex Male 4:58 PM EST Gender Identity Not on file Sexual Orientation Not on file documented as of this encounter Plan of Treatment Upcoming Encounters Date Type Department Care Team (Late Contact Info) Description 04/29/2026 9:15 AM EDT Office Visit [address] 2 [facility] 320 [place] [address] Caden Peterson MD [address] [place] [address] [address] Curtis [address], [place] [address] [place] [address] documented as of this encounter Visit Diagnoses Not on filedocumented in this encounter Additional Health Concerns Assessment Noted Time A fall risk assessment has been complete d for the patient 04/24/2024 9:23 AM EDT documented as of this encounter Care Teams Barbed Wire Machine Operator Relationship Specialty Start Date End Date Bryan Dejesus MD [address] [address] PCP - General Internal Medicine 04/24/24 documented as of this encounter
--- OUTSIDE RECORDS SUMMARY | 2025-05-30 07:04 | XMS_ITS | Encounter Summary ---
Author Organization [facility] Address [address] [place] [address] Care Team Providers Care Academic Records Specialist Name Role Phone Bryan Dejesus MD Primary Care Provider [phone] Bryan Dejesus MD Unavailable [phone] Walls Kavya CANDIDO Unavailable Encounter Details Date Type Department Care Team (Late Contact Info) Description 05/04/2023 Orders Only [facility] [place] [facility] 112 [facility] 110 [place] [address] Clemente Ching DPM 3006 [facility] 5 [place] [address] Social History Tobacco Use Types [...] AM EST Office Visit [facility] [place] [facility] 110 [place] [address] Bryan Dejesus MD 112 [facility] 110 [place], [place] [address] documented as of this encounter Procedures Procedure Name Priority Date/Time Associated Diagnosis Comments MRI FOOT RT WITHOUT CONTRAST Routine 04/28/2023 10:31 AM EDT documented in this encounter Results * MRI FOOT RT WITHOUT CONTRAST (04/28/2023 10:31 AM EDT) Anatomical Region Laterality Modality Radiographic Ebonie ging us Clemente Ching DPM IMG XR PROCEDURES Final Res ult documented in this encounter Visit Diagnoses Not on filedocumented in this encounter Care Teams Academic Records Specialist Relationship Specialty Start Date End Date Bryan Dejesus MD [address] [facility] 110 [place] [address] PCP - General Internal Medicine 02/22/23 Bryan Dejesus MD [address] [facility] 110 [place] [address] PCP - ACO Reach 09/21/24 Kavya Walls LPN [address] [facility] 110 [place] [address] 04/22/25 04/23/25 documented as of this encounter
--- OUTSIDE RECORDS SUMMARY | 2025-05-30 07:04 | XMS_ITS | Clinical Summary ---
Author Organization [facility] Address [address] [place] [address] Care Team Providers Care Automatic Pilot Mechanic Name Role Phone Bryan Zhu Primary Care Provider [phone] Allergies No known active allergies Medications ATORVASTATIN CALCIUM (LIPITOR ORAL) Take 40 mg by mouth once daily. Active lisinopril (ZESTRIL) 10 mg tablet Take 10 mg by mouth once daily. Active FLUOXETINE HCL (PROZAC ORAL) Take 40 mg by mouth once daily. Active METOPROLOL SUCCINATE (TOPROL XL ORAL) Take 25 mg by mouth once daily. Active OMEPRAZOLE (PRILOSEC ORAL) Take 20 mg by mouth once daily. Active HYDROCODONE BIT/ACETAMINOPHE N (VICODIN ORAL) Take 10-600 mg by mouth three times daily. Active Active Problems No known active problems Social History Tobacco Use Types Packs/Day Years Used Date Smoking Tobacco: Never Assessed Sex and Gender Information Value Date Recorded Sex Assigned at Not on file Legal Sex Male 1:20 PM EDT Gender Identity Not on file Sexual Orientation Not on file Last Filed Vital Signs Vital Sign Reading Time Taken Comments Blood Pressure 132/66 05/24/2013 1:00 PM EDT Pulse 56 05/24/2013 1:00 PM EDT Temperature 37.1 C (98.8 F) 05/24/2013 7:00 AM EDT Respiratory Rate 18 05/24/2013 1:00 PM EDT Oxygen Saturation 95% 05/24/2013 1:00 PM EDT Inhaled Oxygen Concentration - - Weight 99.8 kg (220 lb) 05/24/2013 7:00 AM EDT Height 175.3 cm (5' 9 ) 05/24/2013 7:00 AM EDT Body Mass Index 32.49 05/24/2013 7:00 AM EDT Plan of Treatment Health Maintenance Due Date Last Done Comments Anxiety Screening 11/16/1975 Depression Screening 11/16/1975 Hepatitis C Screening 11/16/1975 DTaP,Tdap,Td Vaccine (1 - Tdap) [address] Colonography 2002 Cologuard (FIT-DNA) 2002 Colonoscopy 2002 Colorectal Cancer Screening 2002 Fecal Occult Blood 2002 Prostate Cancer Screening Discussion 2002 Sigmoidoscopy 2002 Pneumococcal Vaccine: 50+ (1 of 1 - PCV) 11/16/2007 Shingrix Vaccine (1 of 2) 11/16/2007 Diabetes Screening 05/24/2016 05/24/2013 Advance Directive Discussion 08/15/2024 Covid-19 Vaccine (1 - 2024- season) 2025 Influenza Vaccine (#1) 2025 RSV Vaccine (1 - 1-dose 75+ series) 2032 Procedures Procedure Name Priority Date/Time Associated Diagnosis Comments BASIC METABOLIC PANEL (EU,FV,HL,MIQUEL,MM,SP) STAT 05/24/2013 8:15 AM EDT from Last 3 Months or Most Recently Relevant to Health Maintenance Results * (ABNORMAL) BASIC METABOLIC PANEL (EU,FV,HL,LK,MIQUEL,MM,SP) (05/24/2013 8:15 AM EDT) Glucose 136(H) 65 - 100 mg/dL [facility] BUN 16 10 - 25 mg/dL [facility] Creatinine 0.66(L) 0.70 - 1.40 mg/dL [facility] Sodium 140 135 - 146 mmol/L [facility] Potassium 3.8 3.5 - 5.0 mmol/L [facility] Chloride 104 98 - 110 mmol/L [facility] CO2 26 23 - 32 mmol/L [facility] Calcium 8.7 8.5 - 10.5 mg/dL [facility] Glom Filtration Rate (AA) >60 >60 [facility] Glom Filtration Rate (LEELA) >60 >60 . [facility] Blood specimen (specimen) BLOOD SPECIMEN / Unknown 05/24/2013 8:15 AM EDT 05/24/2013 8:21 AM EDT Michelle Bhatia PA-C [facility] Final Re sult [facility] [address] [place] [address] from Last 3 Months or Most Recently Relevant to Health Maintenance Care Teams Automatic Pilot Mechanic Relationship Specialty Start Date End Date Bryan Zhu DO PCP - General Family Medicine 01/29/15
--- OUTSIDE RECORDS SUMMARY | 2025-05-30 07:04 | XMS_ITS | Encounter Summary ---
Author Organization [facility] Address [address] [place] [address] Care Team Providers Care Customer Counter Associate Name Role Phone Bryan Dejesus MD Primary Care Provider [phone] Bryan Dejesus MD Unavailable [phone] Walls Kavya CANDIDO Unavailable Encounter Details Date Type Department Care Team (Late Contact Info) Description 12/14/2023 Abstract [facility] [place] [address] [facility] 110 [place] [address] Bryan Dejesus MD [address] [facility] 110 [place], [place] [address] Social History Tobacco Use Types Packs/Day Years [...] AM EST Office Visit [facility] [place] [facility] [address] [facility] 110 [place] [address] Bryan Dejesus MD [address] [facility] 110 [place], [place] [address] documented as of this encounter Visit Diagnoses Not on filedocumented in this encounter Care Teams Customer Counter Associate Relationship Specialty Start Date End Date Bryan Dejesus MD [address] [facility] 110 [place] [address] PCP - General Internal Medicine 02/22/23 Bryan Dejesus MD [address] [facility] 110 [place] [address] PCP - ACO Reach 09/21/24 Kavya Walls LPN [address] [facility] 110 [place] [address] 04/22/25 04/23/25 documented as of this encounter
--- OUTSIDE RECORDS SUMMARY | 2025-05-30 07:04 | XMS_ITS | Encounter Summary ---
Author Organization [facility] Address [address] [facility] [place] [address] Care Team Providers Care Developer Programmer Analyst Name Role Phone Bryan Dejesus MD Primary Care Provider [phone] Bryan Dejesus MD Unavailable [phone] Walls Kavya CANDIDO Unavailable Encounter Details Date Type Department Care Team (Late Contact Info) Description 02/20/2024 Abstract [facility] [place] [address] [facility] 110 [place] [address] Bryan Dejesus MD [address] [place] [facility] 110 [place], [place] [address] Social History Tobacco Use Types Packs/Day Years [...] AM EST Office Visit [facility] [place] [facility] [address] [facility] 110 [place] [address] Bryan Dejesus MD [address] [place] [facility] 110 [place], [place] [address] documented as of this encounter Visit Diagnoses Not on filedocumented in this encounter Care Teams Developer Programmer Analyst Relationship Specialty Start Date End Date Bryan Dejesus MD [address] [facility] 110 [place] [address] PCP - General Internal Medicine 02/22/23 Bryan Dejesus MD [address] [facility] [address] [place] [address] PCP - ACO Reach 09/21/24 Kavya Walls LPN [address] [facility] 110 [place] [address] 04/22/25 04/23/25 documented as of this encounter
--- OUTSIDE RECORDS SUMMARY | 2025-05-30 07:04 | XMS_ITS | Clinical Summary ---
Author Organization [facility] Address [address] [facility], [address] [place] [address] Care Team Providers Care Malted Milk Mixer Name Role Phone Bryan Zhu MD Primary Care Provider [phone] Allergies No known active allergies Medications Elsie-3 Fatty Acids (FISH OIL) 1200 MG CAPS Take by mouth 2 times daily. Active aspirin 325 MG tablet Take 325 mg by mouth daily. Active FLUoxetine (PROZAC) 40 MG capsule Take 40 mg by mouth daily. Active lisinopril (PRINIVIL;ZESTRI L) 10 MG tablet Take 10 mg by mouth daily. Active niacin (NIASPAN) 500 MG CR tablet Take 500 mg by mouth nightly. Active metoprolol (TOPROL XL) 25 MG XL tablet Take 25 mg by mouth daily. Active atorvastatin (LIPITOR) 40 MG tablet Take 40 mg by mouth daily. Active docusate sodium (COLACE) 100 MG capsule Take 100 mg by mouth daily. Active prasugrel (EFFIENT) 10 MG TABS Take 10 mg by mouth daily. Active SAW PALMETTO by Does not apply route daily. Active HYDROcodone-acet aminophen (LORTAB) 10-500 MG per tablet Take 1 tablet by mouth every 8 hours as needed. Active Family History Medical History Relation Name Comments Cancer Father Relation Name Status Comments Father Mother Alive Social History Tobacco Use Types Packs/Day Years Used Date Smoking Tobacco: Former Cigarettes 1 31 0 05/03/1980 - 05/03/2011 Alcohol Use Standard Drinks/Week Comments No 0 (1 standard drink = 0.6 oz pur e alcohol) Sex and Gender Information Value Date Recorded Sex Assigned at Not on file Legal Sex Male 1:58 PM EST Gender Identity Not on file Sexual Orientation Not on file Last Filed Vital Signs Vital Sign Reading Time Taken Comments Blood Pressure 135/80 01/18/2012 8:40 AM EDT Pulse 53 01/18/2012 8:40 AM EDT Temperature 36.6 C (97.8 F) 01/18/2012 8:40 AM EDT Respiratory Rate 16 01/18/2012 8:40 AM EDT Oxygen Saturation - - Inhaled Oxygen Concentration - - Weight 87.1 kg (192 lb) 01/18/2012 8:40 AM EDT Height 172.7 cm (5' 8 ) 01/18/2012 8:40 AM EDT Body Mass Index 29.19 01/18/2012 8:40 AM EDT Plan of Treatment Not on file Care Teams Malted Milk Mixer Relationship Specialty Start Date End Date Bryan Zhu MD PCP - General Family Medicine 01/18/12
--- OUTSIDE RECORDS SUMMARY | 2025-05-30 07:04 | XMS_ITS | Encounter Summary ---
Author Organization [facility] Address [address] [place] [address] Phone Care Team Providers Care Lacquer Dipping Machine Operator Name Role Phone Bryan Dejesus MD Primary Care Provider [phone] Encounter Details Date Type Department Care Team (Late Contact Info) Description 05/11/2023 Scanned Document [facility] [address] [place] [address] Conversion, Onbase Social History Tobacco Use Types Packs/Day Years Used Date Smoking Tobacco: Never Assessed Sex and Gender Information Value Date Recorded Sex Assigned at Not on file Legal Sex Male 4:58 PM EST Gender Identity Not on file Sexual Orientation Not on file documented as of this encounter Functional Status * BP Answer Date of Assessment Author 130/78 05/11/2023 4:18 PM EDT Conversio n, [employer] Vitals * Pulse Answer Date of Assessment Author 60 05/11/2023 4:18 PM EDT Conversio n, [employer] Vitals documented as of this encounter Plan of Treatment Upcoming Encounters Date Type Department Care Team (Late Contact Info) Description 04/29/2026 9:15 AM EDT Office Visit [address] [facility] 320 [place] [address] Caden Peterson MD [address] [place] [address] [address], [facility] 320 [place] [address] documented as of this encounter Procedures Procedure Name Priority Date/Time Associated Diagnosis Comments ELECTROCARDIOGRAM RHYTHM STRIP 05/11/2023 documented in this encounter Results * ELECTROCARDIOGRAM RHYTHM STRIP (05/11/2023) Narrative 05/11/2023 Ordered by an unspecified provider. us Onbase Conversion ECG ORDERABLES Final Result documented in this encounter Visit Diagnoses Not on filedocumented in this encounter Care Teams Lacquer Dipping Machine Operator Relationship Specialty Start Date End Date Bryan Dejesus MD 112 [facility] 110 [place] [address] PCP - General Internal Medicine 04/24/24 documented as of this encounter
--- OUTSIDE RECORDS SUMMARY | 2025-05-30 07:04 | XMS_ITS | Encounter Summary ---
Author Organization [facility] Address [address] [facility] [place] [address] Care Team Providers Care Geodetic Engineer Name Role Phone Bryan Dejesus MD Primary Care Provider [phone] Bryan Dejesus MD Unavailable [phone] Walls Kavya REY Unavailable Encounter Details Date Type Department Care Team (Late Contact Info) Description 05/23/2024 Abstract [facility] [place] [address] [facility] 110 [place] [address] Bryan Dejesus MD [address] [place] [facility] 110 [place], [place] [address] Social History Tobacco Use Types Packs/Day Years [...] AM EST Office Visit [facility] [place] [facility] [address] [facility] 110 [place] [address] Bryan Dejesus MD [address] [place] [facility] 110 [place], [place] [address] documented as of this encounter Visit Diagnoses Not on filedocumented in this encounter Care Teams Geodetic Engineer Relationship Specialty Start Date End Date Bryan Dejesus MD [address] [facility] 110 [place] [address] PCP - General Internal Medicine 02/22/23 Bryan Dejesus MD [address] [facility] 110 [place] [address] PCP - ACO Reach 09/21/24 Kavya Walls LPN [address] [facility] 110 [place] [address] 04/22/25 04/23/25 documented as of this encounter
--- NOTE | 2025-05-30 07:19 | CT_ITS ---
The [address] [address] Patient Name: MAURA GUADALUPE MRN: [id number] date: 1955 Sex: M Assigned Patient Location: LAB Current Patient Location: LAB Accession/Order Number: [id number] Exam Date: 05/30/2025 07:40 Report Date: 05/30/2025 08:52 At the request of: SILVESTRE MIRANDA Procedure: CT chest w con CT CHEST WITH INTRAVENOUS CONTRAST: CLINICAL HISTORY: Abnormality Of Lung On Chest X-ray. Follow-up 1.2 cm oval nodule at the right lung base. COMPARISON: Chest x-ray 04/19/2025, CT 12/12/2024 and 07/11/2023 TECHNIQUE: Spiral images were obtained through the chest following intravenous administration of 100 mL of Omnipaque 300. Images were reviewed using both narrow and wide window settings. This CT exam was performed using one or more following dose reduction techniques: Automated exposure control, adjustment of the mA and/or kV according to patient size, or use of iterative reconstruction technique. FINDINGS: The heart is top normal in size. There is coronary disease. There is no pericardial effusion. No aortic aneurysm or dissection is noted. Mild atherosclerotic plaque is present at the aortic arch and proximal great vessels. There are similar small mediastinal and hilar lymph nodes. The bony structures are intact. Endplate spurring is present at the spine. Small subpleural blebs are visualized at the posterior right upper lobe. There are also some airspace lucencies. Minor atelectasis and/or scarring is again seen. There is no developing consolidation, pleural effusion or pneumothorax. A 7 mm somewhat nodular area at the anterior right lower lobe adjacent to the major fissure is again seen on axial image 51. There is also a small posterior right lower lobe nodule measuring 4 mm on axial image 55. A suspected granuloma is present within the right lower lobe anteriorly adjacent to the dome of the diaphragm. No developing nodularity is identified. There is no correlate for the potential nodular area on the comparison plain film study. Limited cuts through the upper abdomen show possible fatty liver. There is nodular thickening at the left adrenal gland CT/CT chest w con IMPRESSION: OBSTRUCTIVE LUNG DISEASE WITH MINIMAL ATELECTASIS OR SCARRING. SIMILAR RIGHT LOWER LOBE NODULARITY. NO OTHER ACUTE FINDINGS.. Impression dictated by: Yajaira Roland M.D. 05/30/2025 8:52 AM Dictation Location: [place] [address] Electronically authenticated by: [id number] Y Date: 05/30/2025 08:52
[2025-05-30 07:24] LABS: Estimated GFR (African America >60 (>=60 mL/min/1.73m^2); Estimated GFR (Non-African Ame >60 (>=60 mL/min/1.73m^2)
== END 2025-05-30 07:01 | disposition home or self-care (01) ==
LOC: LAB 07:00
PROVIDERS: Pathology Anatomic Pathology & Clinical Pathology; PCP Internal Medicine; Visit Provider Internal Medicine
DX: R91.8 Other nonspecific abnormal finding of lung field (principal); J44.9 Chronic obstructive pulmonary disease, unspecified
CPT/HCPCS: 36415; 71260; 82565; Q9967